=== PATIENT | female | born 1985 | race Caucasian/White ===

== ENCOUNTER 2019-11-05 22:04 | Emergency (ER) | payer MEDICAID, SELFPAY ==
[2019-11-05 22:09] VITALS: BP 108/59; PULSE 72; RESP 14; TEMP 36.8; O2SAT 96
--- NOTE | 2019-11-05 22:17 | ED.GENADUL_ITS ---
Discharge Plan Disposition Patient Disposition: HOME Condition: Good Discharge Details Chief Complaint: Orthopedic Clinical Impression: Contusion of knee Primary Care Provider: None,None ED Provider: Merry Glez Home Meds and New Rx's Prescriptions: No Action No Known Home Meds RF: 0 Discharge Instructions Instructions: Contusion in Adults (ED) Additional Instructions: Encourage rest, ice, elevation. Tylenol and/or ibuprofen as needed for discomfort. Please continue with ice while pain persists. If you have pain in the next 2 weeks please follow-up with primary care. If develop new or worsening symptoms please seek care urgently once again. Medical Decision Making Patient is a pleasant 34-year-old female presenting today with chief complaint of right knee pain. She reports a few hours prior to arrival she had turned suddenly when she hit her knee against the metal frame of her bed. Since that time she has been endorsing severe patellar discomfort. States that initially she was seeing stars and reported initially she was also nauseated. This sensation has since subsided. She has been icing the area but is not taking any OTCs to help with her discomfort. States that she has sprained his knee historically but no torn ligaments, no surgeries. Ambulating with an antalgic gait. Denies other injury the time of the incident. Patient reports she is currently menstruating. On exam, she is resting comfortably. She is a small area of ecchymosis and swelling over the patella. She is able to straight leg raise, ligamentously intact, no effusion. Full range of motion, no evidence of meniscal injury. She has a small abrasion but this seems to be very superficial with no evidence of bleeding. Plan to give Tylenol and ibuprofen to help with discomfort. FINDINGS: Bones/joints: Normal. Soft tissues: Minor prepatellar soft tissue swelling. No foreign body.. IMPRESSION: 1. No acute findings. 2. No fracture. No dislocation. No joint effusion. Discussed these findings with the patient. Advised contusion. Encourage rest, ice, elevation. Tylenol and/or ibuprofen as needed for discomfort. Patient will be fitted with an Alexsander wrap to help with swelling and discomfort. All her questions and concerns were addressed and she is agreeable this plan. She will return with any new or worsening symptoms will follow-up with primary care if not improved in 2 weeks. HPI General Mode of arrival: ambulatory . Date/Time Provider Initiated Documentation: 11/05/19 22:17 . Limitations to Documentation: no limitations . Information obtained by: patient and RN notes reviewed . History of Present Illness 34 year old F presents to the emergency department with the chief complaint of right knee pain, described as severe, with intensity rated at 8. Quality is described as sharp, and is localized to the lower extremity. Patient reports no radiation. Patient started experiencing this hour(s) and it has been constant. Immobilization improves symptom(s), Movement worsens symptoms . Patient notes no other symptoms.. Patient did receive the following treatments prior to arrival, none Related Data Home Medications Medication Instructions Recorded Confirmed Unknown [No Known Home Meds] 11/05/19 11/05/19 Allergies Allergy/AdvReac Type Severity Reaction Status Date / Time No Known Allergies Allergy Unverified 11/05/19 22:13 General Stated Complaint: Orthopedic LAKHWINDER: 4 Review of Systems Constitutional Constitutional: Reports as per HPI, Denies chills, Denies fever(s), Denies headache(s) and Denies weakness ENT Ears, Nose, Mouth, and Throat: Denies headache(s) Cardiovascular Cardiovascular: Reports as per HPI Respiratory Respiratory: Reports as per HPI and Denies cough Musculoskeletal Musculoskeletal: Reports as per HPI and Denies tingling Integumentary/Breasts Skin/Breast: Reports as per HPI, Denies rash and Denies wounds Neurologic Neurologic: Reports as per HPI, Denies headache(s), Denies tingling, Denies paresthesias and Denies weakness [facility] Medical History Anxiety Depressive disorder idiopathic scolios Migraine without intractability Social History Smoking/Tobacco Use Status: Never Alcohol Intake: current Alcohol Intake frequency: a few times a week Drug use: Daily Substance use type: marijuana Do you feel safe at home: Yes Do you feel safe in your relationship?: Yes Exam Const General: cooperative, healthy appearing, comfortable, no acute distress, well developed and well groomed Nutritional Appearance: average body habitus and well nourished Orientation: alert and awake Resp Effort & Inspection: normal respiratory effort, able to speak in complete sentences and no respiratory distress Cardio Rate: regular rate Rhythm: regular rhythm Skin General skin exam: ecchymosis Trauma: abrasion (over anterior aspect of knee, small, superficial, no bleeding) Neuro General: alert and awake Cognition: normal cognition Speech: speech normal Gait: normal gait Motor: muscle tone normal throughout Sensory Exam: no sensory deficits noted Extrem Right lower extremity: full ROM, normal capillary refill, no joint enlargement, hip/thigh Details: normal to inspection and normal ROM; no tenderness and knee Details: normal to inspection, tenderness (over area of ecchymosis and swelling on patella), swelling (no effusion) Location: of the patella, normal ROM, knee ligament exam normal Details: anterior drawer test normal, posterior drawer test normal, valgus stress test normal, varus stress test normal and Eliud?s test normal (normal); no pain with axial loading, Sarai's Test Details: negative medially and laterally, abrasion, ecchymosis and other (straight leg raise normal); normal knee ligament exam, no lacerations, no crepitus, no penetrating wound, no deformity and no unusual warmth; abnormal to inspection (ecchymosis a nd small abrasion as above), no cyanosis and no edema Psych Appearance: grossly normal and well kempt Mental Status: mental status grossly normal Speech and Movement: speech and movement normal Course Vital Signs Vital signs: Vital Signs Temperature 36.8 C 11/05/19 22:09 Pulse 72 11/05/19 22:09 Respiratory Rate 14 11/05/19 22:09 Blood Pressure 108/59 L 11/05/19 22:09 Pulse Oximetry 96 11/05/19 22:09 Temperature 36.8 C 11/05/19 22:09 Temperature Source Skin 11/05/19 22:09 Pulse 72 11/05/19 22:09 Respiratory Rate 14 11/05/19 22:09 Respiratory Effort Non-Labored 11/05/19 22:12 Blood Pressure 108/59 L 11/05/19 22:09 Blood Pressure Position Sitting 11/05/19 22:09 Pulse Oximetry 96 11/05/19 22:09 Oxygen Delivery Method Room Air 11/05/19 22:09 Oxygen Flow Rate 0 11/05/19 22:09 Pain Level 8 11/05/19 22:14
[2019-11-05] MEDS: Acetaminophen 500 MG TAB 1000 MG PO (22:55)
[2019-11-05] MEDS: Ibuprofen 600 MG TAB PO (22:55)
--- NOTE | 2019-11-05 22:56 | DI.RAD_ITS ---
EXAM: XR KNEE RT 4V AP,LAT,SHANNAN,PAT INDICATION: struck patella. COMPARISON: No exams were available for comparison TECHNIQUE: 2D digital imaging was performed. FINDINGS: Or joint effusion is seen. There is some soft tissue swelling anterior to the patella. IMPRESSION: Mild anterior soft tissue swelling.
--- NOTE | 2019-11-05 23:26 | DI.VRAD_ITS ---
PROCEDURE INFORMATION: Exam: XR Left Knee Exam date and time: 11/05/2019 10:56 PM Age: 34 years old Clinical indication: Right; Patient HX: Hit knee on metal bed frame, pain and difficulty bearing weight TECHNIQUE: Imaging protocol: XR Left knee. Views: 4 or more views. COMPARISON: No relevant prior studies available. FINDINGS: Bones/joints: Normal. Soft tissues: Minor prepatellar soft tissue swelling. No foreign body.. IMPRESSION: 1. No acute findings. 2. No fracture. No dislocation. No joint effusion. Dictated and Authenticated by: Lawrence Vasquez MD. Ordering:DARLYN Sousa MD
[2019-11-06 00:02] VITALS: BP 108/59; PULSE 72; RESP 14; TEMP 36.8; O2SAT 96
== END 2019-11-05 23:55 | disposition home or self-care (01) ==
PROVIDERS: Emergency Provider Physician Assistant
DX: S80.01XA Contusion of right knee, initial encounter (principal); W22.03XA Walked into furniture, initial encounter
CPT/HCPCS: 99283; 73564

== ENCOUNTER 2020-05-01 11:15 | Outpatient (REF) | payer MEDICAID, SELFPAY ==
--- NOTE | 2020-05-01 10:30 | PAPFT_PTH ---
PATIENT: Ana Bowser LOC: [facility] U#:[id number] AGE/SX: 34/F ROOM: RE05/01/[address]: Blanche Lema : 1985 BED: DIS: 05/01/2020 SPEC #: [id number] RECD: 05/01/20 17:34 STATUS: HALIMA REQ #: [id number] MARTHA: 05/01/20 10:[address]: Blanche Lema DEPT: [facility] Cytology RECD BY: Khushi Baca Tissues: 1 - CX/ENDOCX FOR PAP SMEARS Procedures: PAP THIN PREP/UVM Screening HPV DNA PROBE Comments: [id number] (CHLAMYDIA/GC)
[2020-05-04 15:40] LABS: Chlamydia Result Negative (Negative); GC Result Negative (Negative)
== END 2020-05-01 11:35 ==
LOC: NCHCN 11:15
PROVIDERS: PCP Family Medicine; Visit Provider Family Medicine
DX: Z11.3 Encounter for screening for infections with a predominantly sexual mode of transmission (principal); Z12.4 Encounter for screening for malignant neoplasm of cervix; Z11.51 Encounter for screening for human papillomavirus (HPV)
CPT/HCPCS: 87491; 87591; 88142; 87624

== ENCOUNTER 2020-07-24 13:28 | Outpatient (REF) | payer MEDICAID, SELFPAY | END 2020-07-24 13:48 | LOC: NCHCN 13:28 | PROVIDERS: PCP Family Medicine; Visit Provider Nurse Practitioner Family | DX: R30.0 Dysuria (principal) | CPT/HCPCS: 87077; 87086; 87186 ==

== ENCOUNTER 2021-04-14 18:03 | Emergency (ER) | payer MEDICAID, SELFPAY ==
[2021-04-14] VITALS (19 sets, daily range): BP systolic 107–137; BP diastolic 43–79; PULSE 41–57; RESP 10–22; TEMP 36.6; O2SAT 96–100
--- NOTE | 2021-04-14 18:21 | ED.GENADUL_ITS ---
Discharge Plan Disposition Patient Disposition: HOME Condition: Stable Discharge Details Clinical Impression: Abdominal pain, Constipation, Enlarged uterus Primary Care Provider: Blanche Lema ED Provider: Merry Glez Home Meds and New Rx's Prescriptions: No Action No Known Home Meds RF: 0 Discharge Instructions Instructions: Magnesium Citrate (By mouth), Constipation (ED), Abdominal Pain (ED) Additional Instructions: Your labs and imaging are reassuring for any acute abnormality at this time. You do appear to be constipated. We will be sending you home with a bottle of magnesium citrate. You may take half a bottle and see if this has good effect. If this is insufficient, may give the second half. Please encourage water intake. As we discussed, we cannot completely rule out ovarian pathology. I have referred you for an outpatient ultrasound. Please call tomorrow to schedule follow-up appointment. They will also look further at your liver at that time. If in the interim you develop fever/chills, inability stay hydrated, increased pain or other new/worsening symptoms please seek care urgently once again. Please follow up with primary care this week for reevaluation and discuss US results. Referrals: Blanche Lema MD [Primary Care Provider] - Discharge Data Discharge Date/Time-TO BE ENTERED AT DEPARTURE: 04/14/21 21:40 Medical Decision Making Patient is a pleasant 35 year old female presenting today with c/c of abdominal bloating that began last night. States that she has chronic constipation but did not have relief after enema. Surgical history pertinent for cholecystecomy. States she has some nausea, no vomiting. Reports that she had diminished appetite this evening. Pain is not worse with eating. No fevers/chills. No pain in her back. Denies vaginal discharge. LMP last week. On exam, patient appears nontoxic. She has tenderness with guarding on RLQ over McBurney's point. No CVA tenderness or pain elsewhere. Lungs are clear. Concerned at this time for appendicitis. Also considered nephrolithiasis, constipation, gastroenteritis, ovarian cyst. Less likely ovarian torsion, her history is not highly suggestive of this. Paitent improved with IV Zofran. FINDINGS: Liver: Diffuse heterogeneous enhancement (Nutmeg liver), may be the result of hepatic venous congestion. Gallbladder and bile ducts: There has been a cholecystectomy. Pancreas: Normal. No ductal dilation. Spleen: Normal. No splenomegaly. Adrenal glands: Normal. No mass. Kidneys and ureters: Normal. No hydronephrosis. Stomach and bowel: Unremarkable. No obstruction. No mucosal thickening. Appendix: No evidence of appendicitis. Intraperitoneal space: Unremarkable. No free air. No significant fluid collection. Vasculature: Unremarkable. No abdominal aortic aneurysm. Lymph nodes: Unremarkable. No enlarged lymph nodes. Urinary bladder: Unremarkable as visualized. Reproductive: Dilated left ovarian vein with associated enlarged varicosities within the left parametrial region. The uterus is diffusely enlarged. Bones/joints: Unremarkable. No acute fracture. Soft tissues: Unremarkable. IMPRESSION: 1. Hepatic venous congestion. This can be seen with but rick syndrome, congestive heart failure, pulmonary hypertension among others. 2. 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 3. Diffusely enlarged uterus may be physiologic. However raises suspicion for possible adenomyosis Discussed the findings with the patient. She continues to feel well and is not having any discomfort at this time. However, she continues to feel bloated. Patient did have a notable amount of stool burden. Question if this is all associated with constipation. We did discuss the incidental findings noted on the CT scan. She and I discussed further imaging of the right lower quadrant, in particular an ultrasound for potential ovarian torsion. No cyst was noted by radiologist. She does not have any free fluid. Her history is not consistent with ovarian torsion. She denies any sudden onset of pain, pain is been fairly well tolerated. It is more bloating. We do not currently have recreation leader on this evening. I did discuss patient transferring to a different facility for ultrasound evaluation. However, she would prefer to follow-up as an outpatient tomorrow. This would allow for further evaluation of her uterus as well as the liver. Her LFTs were normal. I did advise close follow-up with primary care this week for reevaluation. Patient does live locally and is able to return promptly with any new or worsening symptoms. Patient will be sent home with stool softener. She prefers to take this when she is in her own home. All of her questions and concerns were addressed and she is in agreement this plan. HPI General Mode of arrival: ambulatory . Date/Time Provider Initiated Documentation: 04/14/21 18:12 . Limitations to Documentation: no limitations . Information obtained by: patient and RN notes reviewed . History of Present Illness 35 year old F presents to the emergency department with the chief complaint of abdominal pain, bloating, nausea, described as moderate, with intensity rated at 3. Quality is described as aching, and is localized to the abdomen. Patient reports no radiation. Patient started experiencing this hour(s) and it has been constant. No relieving factors improve symptom(s), Eating worsens symptoms . Patient notes no other symptoms.. Patient did receive the following treatments prior to arrival, none Related Data Home Medications Medication Instructions Recorded Confirmed Unknown [No Known Home Meds] 11/17/20 04/14/21 Allergies Allergy/AdvReac Type Severity Reaction Status Date / Time vinegar Allergy Uncoded 04/14/21 18:24 General LAKHWINDER: 4 Review of Systems Constitutional Constitutional: Reports as per HPI, Denies chills, Denies fatigue, Denies fever(s) and Denies headache(s) ENT Ears, Nose, Mouth, and Throat: Denies headache(s) Cardiovascular Cardiovascular: Reports as per HPI, Denies chest pain and Denies dyspnea Respiratory Respiratory: Reports as per HPI, Denies cough and Denies dyspnea Gastrointestinal Gastrointestinal: Reports as per HPI Musculoskeletal Musculoskeletal: Reports as per HPI and Denies back pain Integumentary/Breasts Skin/Breast: Reports as per HPI and Denies rash Neurologic Neurologic: Reports as per HPI and Denies headache(s) Endocrine Endocrine: Denies fatigue [facility] Medical History (Updated 04/14/21 @ 21:33 by MARION Jimenez) Anxiety Depressive disorder idiopathic scolios Migraine without intractability Social History Smoking/Tobacco Use Status: Never Smoking risk assessment performed?: Yes Alcohol Intake: current Alcohol Intake frequency: a few times a week Drug use: Daily Substance use type: marijuana Do you feel safe at home: Yes Do you feel safe in your relationship?: Yes Exam Const General: cooperative, healthy appearing, comfortable, no acute distress and well developed Nutritional Appearance: average body habitus and well nourished Orientation: alert and awake HENMT Head: normal to inspection Mouth: moist mucous membranes Resp Effort & Inspection: normal respiratory effort, able to speak in complete sentences and no respiratory distress Auscultation: clear to auscultation bilaterally, no rales, no rhonchi and no wheezes Cardio Rate: regular rate Rhythm: regular rhythm Heart Sounds: S1 normal and S2 normal GI Inspection: normal to inspection, no edema and non-distended Palpation: soft, no hepatosplenomegaly, not firm, guarding in the RLQ, no hernias, no masses and tender in the RLQ and at McBurney's point; Pulido's sign negative, obturator sign negative and psoas sign negative Percussion: normal to percussion Auscultation: normal bowel sounds Back/Spine/Pelvis Back: no CVA tenderness Skin General skin exam: no rashes or lesions noted Trauma: no lacerations or abrasions Neuro General: patient alert and patient awake Cognition: normal cognition Speech: speech normal Gait: normal gait Psych Appearance: grossly normal and well kempt Mental Status: mental status grossly normal Speech and Movement: speech and movement normal
--- NOTE | 2021-04-14 18:30 | DI.CT_ITS ---
Exam(s) CT ABDOMEN PELVIS W EXAM: CT ABDOMEN PELVIS W CLINICAL HISTORY: RLQ pain. TECHNIQUE: Imaging Protocol: Axial computed tomography images with coronal and sagittal reformatted images were created and reviewed CONTRAST MATERIAL: Intravenous: Omnipaque 70cc Oral: None COMPARISON: CT RENAL COLIC WO CONTRAST from 05/12/2017 FINDINGS: VISUALIZED LUNG BASES: No nodules nor pleural effusions evident. ABDOMEN: There is no ascites. LIVER: Enhancement pattern of the liver is somewhat heterogeneous. Possibly related to an element of hepatic venous congestion GALLBLADDER/BILIARY: Gallbladder surgically absent. CBD is not dilated. PANCREAS: No evidence of pancreatic mass nor dilatation of the pancreatic duct. SPLEEN: Spleen is not enlarged. No obvious intrasplenic lesions. Splenic and portal veins are paten t. ADRENALS: There are no significant adrenal masses. KIDNEYS:No cysts evident. No solid renal masses. No calculi nor hydronephrosis.. ABDOMINAL AORTA: Abdominal aorta is not enlarged. LYMPH NODES:There is no retroperitineal nor paraaortic adenopathy. ABDOMINAL WALL: No evidence of significant anterior abdominal wall hernia. GI: There is no evidence of bowel obstruction, free air, nor abscess. PELVIS: GI: No evidence of appendicitis.No evidence of sigmoid diverticulitis. LYMPH NODES: There is no intrapelvic nor inguinal adenopathy. REPRODUCTIVE: The uterus is symmetrical enlarged. There are no ovarian masses. A cyst in the left o vary 11 x 9 millimeters, most probably follicular. There are numerous dilated veins in the left adne xal region. These drain into a somewhat prominent left gonadal vein which itself drains into the lef t renal vein. There is no free fluid in the pelvis. URINARY BLADDER: No calculi nor obvious masses evident OSSEOUS: No significant osseous lesions. Degenerative disc disease findings at L5-S1 level including vacuum phenomenon within the disc space. IMPRESSION: 1. Hepatic enhancement pattern is heterogeneous, most probably related to venous congestion. There a re no discrete focal hepatic lesions. 2. Gallbladder surgically absent. The biliary tree is not dilated. 3. Dilated left pelvic veins as described above, consistent with an element of pelvic congestion synd amilcar. 4. Diffusely enlarged uterus which may be physiologic versus is possible suspicion for adenomyosis. No abnormal adnexal-ovarian masses. RADIATION DOSE DELIVERED: 523.81mGy.cm Total DLP DATA REPOSITORY: All CT scans at this facility are submitted to the National Radiology Data Registry (NRDR) Dose Index Registry (DIR) with the [employer] (ACR). RADIATION OPTIMIZATION: All CT scans at this facility use at least one of these dose optimization te chniques: automated exposure control; mA and/or kV adjustment per patient size (includes targeted exa ms where dose is matched to clinical indication); or iterative reconstruction.
[2021-04-14 18:50] LABS: Abs Immature Grans 0.01 10^3/uL (0.0-0.06); Absolute Basophil Count 0.01 10^3/uL (0.0-0.2); Absolute Eosinophil Count 0.08 10^3/uL (0.0-0.7); Absolute Lymphocyte Count 2.12 10^3/uL (1.2-3.4); Absolute Monocyte Count 0.41 10^3/uL (0.1-0.8); Absolute Neutrophil Count 2.91 10^3/uL (1.2-6.7); Basophils % 0.2; Eosinophils % 1.4; HCT 35.4 % (36.0-46.0); HGB 11.5 g/dL (11.2-15.7); Immature Grans % 0.2; Lymphocytes % 38.3; MCH 28.4 pg (27.0-33.0); MCHC 32.5 % (32.0-36.0); MCV 87.4 fL (80-95); MPV 10.6 fL (8.0-11.0); Monocytes % 7.4; Neutrophils % 52.5; Nucleated RBC 0 %; Platelet Count 203 10^3/uL (130-400); RBC 4.05 10^6/uL (3.93-5.22); RDW 12.2 % (11.7-14.6); RDW-SD 39.6 fL; WBC 5.54 10^3/uL (4.4-10.8)
[2021-04-14] MEDS: Ondansetron 4 MG/2 ML VIAL IVP (19:05)
[2021-04-14] MEDS: Lactated Ringers 1,000 ML 1000 ML IV (19:05)
[2021-04-14 19:09] LABS: ALT 20 U/L (14-59); AST 12 U/L (15-37); Albumin 3.9 g/dL (3.4-5.0); Alkaline Phosphatase 55 U/L (46-116); Anion Gap 7.2 mmol/L (3-11); BUN 15 mg/dL (7-18); Bilirubin, Total 0.4 mg/dL (0.2-1.0); CO2 28.8 mmol/L (21.0-32.0); CREATININE 0.7 mg/dL (0.55-1.02); Calcium 8.4 mg/dL (8.5-10.1); Chloride 106 mmol/L (98-107); Glucose 97 mg/dL (74-106); Potassium 3.7 mmol/L (3.5-5.1); Sodium 142 mmol/L (136-145); Total Protein 6.8 g/dL (6.4-8.2)
[2021-04-14] MEDS: Omnipaque 350 MG/ML 100 ML BTL IJ (20:08)
[2021-04-14] MEDS: Normal Saline Flush 10 ML SYR IVP (20:09)
[2021-04-14] MEDS: Normal Saline - Diluent 50 ML VIAL IV (20:09)
[2021-04-14] MEDS: ACETAMINOPHEN 1,000 MG/100 ML BTL 400 MG IVPB (20:29)
--- NOTE | 2021-04-14 20:39 | DI.VRAD_ITS ---
PROCEDURE INFORMATION: Exam: CT Abdomen And Pelvis With Contrast Exam date and time: 04/14/2021 6:34 PM Age: 35 years old Clinical indication: Other: Rlq pain TECHNIQUE: Imaging protocol: Computed tomography of the abdomen and pelvis with contrast. Radiation optimization: All CT scans at this facility use at least one of these dose optimization techniques: automated exposure control; mA and/or kV adjustment per patient size (includes targeted exams where dose is matched to clinical indication); or iterative reconstruction. Contrast material: OMNIPAQUE 350; Contrast volume: 70 ml; Contrast route: INTRAVENOUS (IV); COMPARISON: CT RENAL COLIC WO CONTRAST 05/12/2017 9:05 AM FINDINGS: Liver: Diffuse heterogeneous enhancement (Nutmeg liver), may be the result of hepatic venous congestion. Gallbladder and bile ducts: There has been a cholecystectomy. Pancreas: Normal. No ductal dilation. Spleen: Normal. No splenomegaly. Adrenal glands: Normal. No mass. Kidneys and ureters: Normal. No hydronephrosis. Stomach and bowel: Unremarkable. No obstruction. No mucosal thickening. Appendix: No evidence of appendicitis. Intraperitoneal space: Unremarkable. No free air. No significant fluid collection. Vasculature: Unremarkable. No abdominal aortic aneurysm. Lymph nodes: Unremarkable. No enlarged lymph nodes. Urinary bladder: Unremarkable as visualized. Reproductive: Dilated left ovarian vein with associated enlarged varicosities within the left parametrial region. The uterus is diffusely enlarged. Bones/joints: Unremarkable. No acute fracture. Soft tissues: Unremarkable. IMPRESSION: 1. Hepatic venous congestion. This can be seen with but rick syndrome, congestive heart failure, pulmonary hypertension among others. 2. 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 3. Diffusely enlarged uterus may be physiologic. However raises suspicion for possible adenomyosis. Dictated and Authenticated by: Dominick Gentile MD. Ordering:DARLYN oSusa MD
[2021-04-14] MEDS: Magnesium Citrate 300 ML BTL PO (21:35)
--- NOTE | 2021-04-14 21:48 | NUR.NOTE ---
Radiology req faxed to [facility] for ultra sound appt. 04/15/21 RLQ pain, abnormal liver findings on CT.Nursing Note:
== END 2021-04-14 21:40 | disposition home or self-care (01) ==
PROVIDERS: Emergency Provider Physician Assistant; PCP Family Medicine
DX: K59.00 Constipation, unspecified (principal); R10.9 Unspecified abdominal pain; N85.2 Hypertrophy of uterus
CPT/HCPCS: 80053; 81025; 96361; 96372; 96374; 96375; 99285; 74177; 85025; 99284; J0131; J2405; J3490

== ENCOUNTER 2021-04-16 04:51 | Outpatient (CLI) | payer MEDICAID, SELFPAY ==
--- NOTE | 2021-04-16 | DI.US_ITS ---
Exam(s) US ABD PELV TRANSVAG NON-OB EXAM: US ABD PELV TRANSVAG NON-OB CLINICAL HISTORY: ENLARGED UTERUS,BLOATING,RLQ PAIN,RUQ PAIN,ABNL LIVER ON CT TECHNIQUE: Ultrasound of the abdomen, pelvic, both abdmonal and tranvaginal was performed using sta ndard protocol. COMPARISON: US ABDOMEN ULTRASOUND (P) from 03/10/2014 US ABDOMEN ULTRASOUND (P) from 03/10/2014 CT RENAL COLIC WO CONTRAST from 05/12/2017 CT RENAL COLIC WO CONTRAST from 05/12/[address] ABDOMEN PELVIS W from 04/14/2021 FINDINGS: LIVER: Normal size and echogenicity. No focal lesions.. Normal hepatopetal portal venous flow. GALLBLADDER: Status post cholecystectomy. KIDNEYS: Kidneys are symmetric in size. No evidence of renal calculi. No evidence of hydronephrosis. No renal mass or cyst identified. BILIARY SYSTEM: Common bile duct measures 3 millimeters. No intrahepatic biliary ductal dilation. WYATT'S SIGN: Negative. PANCREAS: Normal where visualized. SPLEEN: Not enlarged. ABDOMINAL AORTA AND IVC: Visualized portions normal caliber. ASCITES: None seen. UTERUS: Position: Anteverted. Size: 8.4 x 4.3 x 5.7 cm Endometrium: 0.6 cm. Homogeneous. Normal for patient's menstrual status. Myometrium: Unremarkable. Homogeneous. Cervix: Unremarkable. OVARIES: Right: 2.7 x 1.4 x 1.4 cm Cyst or mass: None. Left: 3.4 x 2 x 1.6 cm Cyst or mass: 1.3 centimeter dominant follicle. DOPPLER: Color: Symmetric and uniform flow to both ovaries. No hyperemia. Duplex: Normal ovarian arterial waveforms visualized. CUL-DE-SAC: Free fluid: None. Bladder: Unremarkable. IMPRESSION: 1. Normal sonographic appearance of the upper abdomen. 2. Normal-appearing uterus with endometrial stripe within normal limits. 3. Unremarkable bilateral ovaries. DATA REPOSITORY:
== END 2021-04-16 05:11 ==
PROVIDERS: PCP Family Medicine; Visit Provider Physician Assistant
DX: N85.2 Hypertrophy of uterus (principal); R93.2 Abnormal findings on diagnostic imaging of liver and biliary tract; R10.11 Right upper quadrant pain
CPT/HCPCS: 76700; 76830; 76856

== ENCOUNTER 2021-06-02 14:40 | Outpatient (REF) | payer MEDICAID, SELFPAY ==
[2021-06-02 20:38] LABS: HCT 35.6 % (36.0-46.0); HGB 11.4 g/dL (11.2-15.7); MCH 28.1 pg (27.0-33.0); MCV 87.9 fL (80-95); MPV 11.8 fL (8.0-11.0); Platelet Count 197 10^3/uL (130-400); RBC 4.05 10^6/uL (3.93-5.22); RDW 12.2 % (11.7-14.6); RDW-SD 39.6 fL; WBC 6.05 10^3/uL (4.4-10.8)
[2021-06-02 20:58] LABS: Ferritin 44 ng/mL (8-252); TSH (W/Ref FT4) 1.08 uIU/mL (0.36-3.74)
== END 2021-06-02 14:41 | disposition home or self-care (01) ==
LOC: NCHCN 14:40
PROVIDERS: PCP Family Medicine; Referring Provider Family Medicine; Visit Provider Family Medicine
DX: N92.0 Excessive and frequent menstruation with regular cycle (principal)
CPT/HCPCS: 85027; 82728; 84443

== ENCOUNTER 2021-07-05 14:13 | Emergency (ER) | payer MEDICAID, SELFPAY ==
[2021-07-05] VITALS (32 sets, daily range): BP systolic 105–149; BP diastolic 55–91; PULSE 45–99; RESP 9–20; TEMP 37.5; O2SAT 96–100
--- NOTE | 2021-07-05 14:45 | RT.EKG_ITS ---
APPROVED REPORT Exam: Resting ECG Reason for Exam: chest pain Patient Location: E HR:47 bpm ECG Measurements Heart Rate 47 AXIS RI 178 P 35 QRSd 72 QRS 81 QT 449 T 44 QTc 397 Conclusion Sinus bradycardia...rate< 60 no STEMI, non-diagnostic EKG I have reviewed and interpreted ECG and agree with software generated interpretation.
[2021-07-05 15:17] LABS: Abs Immature Grans 0.02 10^3/uL (0.0-0.06); Absolute Basophil Count 0.02 10^3/uL (0.0-0.2); Absolute Eosinophil Count 0.03 10^3/uL (0.0-0.7); Absolute Lymphocyte Count 1.75 10^3/uL (1.2-3.4); Absolute Monocyte Count 0.35 10^3/uL (0.1-0.8); Absolute Neutrophil Count 2.78 10^3/uL (1.2-6.7); Basophils % 0.4; Eosinophils % 0.6; HCT 37.3 % (36.0-46.0); HGB 11.9 g/dL (11.2-15.7); Immature Grans % 0.4; Lymphocytes % 35.4; MCH 28.1 pg (27.0-33.0); MCHC 31.9 % (32.0-36.0); MCV 88.2 fL (80-95); MPV 10.8 fL (8.0-11.0); Monocytes % 7.1; Neutrophils % 56.1; Nucleated RBC 0 %; Platelet Count 229 10^3/uL (130-400); RBC 4.23 10^6/uL (3.93-5.22); RDW 12.5 % (11.7-14.6); RDW-SD 40.1 fL; WBC 4.95 10^3/uL (4.4-10.8)
--- NOTE | 2021-07-05 15:34 | ED.GENADUL_ITS ---
Discharge Plan Disposition Patient Disposition: HOME Condition: Improving Discharge Details Clinical Impression: Migraine, Facial paresthesia Primary Care Provider: Blanche Lema ED Provider: Merry Glez Home Meds and New Rx's Prescriptions: New promethazine 25 mg tablet 25 mg PO Q6H PRN (Reason: nausea and vomiting) Qty: 14 RF: 0 Discharge Instructions Instructions: Promethazine (By mouth), General Headache (ED) Additional Instructions: Your imaging is reassuring here today. Your labs are also without significant abnormality. As we discussed, I am concerned that this is one of her typical migraines but may be slightly worse secondary to your increased stress. Please encourage hydration. You may use Tylenol and/or ibuprofen as needed for discomfort. Please take the promethazine as prescribed for any recurrent nausea or vomiting. As discussed, it sounds that this is worked well for her migraines historically hopefully will help once again. I would like you to follow-up with your primary care provider this week for reevaluation, please call tomorrow to schedule follow-up appointment. Develop any fever/chills, increased pain, inability stay hydrated or other new/worsening symptom please seek care urgently once again Referrals: Blanche Lema MD [Primary Care Provider] - Discharge Data Discharge Date/Time-TO BE ENTERED AT DEPARTURE: 07/05/21 18:40 Medical Decision Making <MARION Arias - Last Filed: 07/06/21 21:23> Patient appears well but have a negative carotid bruit on the right side, her diagnostic labs not show significant acute abnormality CTA head neck ordered, she had developed headache approximately 1600 for which I ordered Tylenol, initially Compazine and Benadryl, however if all that testing is negative, patient will likely be discharged home She has a bradycardic but asymptomatic with this, and this is reportedly baseline for patient Denies any suicidal or homicidal ideation, feels like she has a good support from her home and declines additional intervention at this time Signed out to Merry Glez pending cta head and neck and reassessment <MARION Jimenez - Last Filed: 07/05/21 22:12> Care transition myself from Khushi Germain PA-C. Please see her initial note regarding history, presentation. In brief, patient is a pleasant 35-year-old female presenting today with chief complaint of right-sided facial numbness. At the time I assumed care, CTA it was pending. Just prior to Mrs. Germain transition of care, patient began endorsing a migraine. It sounds a patient has had these similar facial neuralgias associated with migraines historically but she has not had one in quite some time. She has had a large amount of social stress recently. Ms. Germain was concerned that there is a bruit noted on the right side of her neck therefore wanted to obtain the CTA. She did write for Tylenol for the patient. Shortly after I assumed care, patient became nauseated. She does report planning to drive home. Will give IV Zofran. We will also hydrate the patient grossly also be playing into her headache. FINDINGS: ANTERIOR CIRCULATION: Right internal carotid artery: Unremarkable. Intracranial segment is patent with no significant stenosis. No aneurysm. Right middle cerebral artery: Unremarkable. No occlusion or significant stenosis. No aneurysm. Right anterior cerebral artery: Unremarkable. No occlusion or significant stenosis. No aneurysm. Left internal carotid artery: Unremarkable. Intracranial segment is patent with no significant stenosis. No aneurysm. Left middle cerebral artery: Unremarkable. No occlusion or significant stenosis. No aneurysm. Left anterior cerebral artery: Unremarkable. No occlusion or significant stenosis. No aneurysm. POSTERIOR CIRCULATION: Right vertebral artery: Unremarkable. No occlusion or significant stenosis. No aneurysm. Left vertebral artery: Unremarkable. No occlusion or significant stenosis. No aneurysm. Basilar artery: Unremarkable. No occlusion or significant stenosis. No aneurysm. Right posterior cerebral artery: Unremarkable. No occlusion or significant stenosis. No aneurysm. Left posterior cerebral artery: Unremarkable. No occlusion or significant stenosis. No aneurysm. Brain: No definite mass, mass effect, or midline shift. Cerebral ventricles: No ventriculomegaly. Bones/joints: Unremarkable. No acute fracture. Soft tissues: Unremarkable. IMPRESSION: No large vessel stenosis or occlusion. FINDINGS: Right common carotid artery: No stenosis. No dissection or occlusion. Right internal carotid artery: No stenosis of the extracranial segment. No dissection or occlusion. Right external carotid artery: No occlusion or stenosis of the origin. Left common carotid artery: No stenosis. No dissection or occlusion. Left internal carotid artery: No stenosis of the extracranial segment. No dissection or occlusion. Left external carotid artery: No occlusion or stenosis of the origin. Right vertebral artery: No stenosis. No dissection or occlusion. Left vertebral artery: No stenosis. No dissection or occlusion. Soft tissues: Normal. No significant soft tissue swelling. Bones/joints: No acute fracture. IMPRESSION: No stenosis or occlusion Discussed these findings with the patient. Her headache and symptoms are improving. She is very relieved that imaging is reassuring. She reports that this did seem quite similar to when she had her migraines in the past is more severe. This is likely associated with her severe stress associated with recent level 1 denies. This is likely been heightened more than it was a CVA that the individual from. She reports that she has had Phenergan in the past for nausea, vomiting as well as migraines and has done quite well with this. We did discuss oral versus rectal Phenergan, she would prefer oral as this is worked well for her. Headache is much improved, will augment with Toradol as well prior to discharge home. Strict return precautions were discussed. Advise close follow-up with primary care. All of her questions and concerns were addressed and she is in agreement with plan. HPI <MARION Arias - Last Filed: 07/06/21 21:23> General Mode of arrival: ambulatory . Date/Time Provider Initiated Documentation: 07/05/21 14:31 . Limitations to Documentation: no limitations . Information obtained by: patient . HPI Narrative: This 35-year-old female presents with report of acute onset of right-sided facial numbness, specifically in the maxillary region and unilateral periorally with tongue involvement and palm involvement. She states that began after a sharp pain in the maxillary region. She states this lasted several seconds and resolved completely. Since that time she had persistent diminished sensation to this area. She states she is able to swallow although it feels numb on the back of her throat and she states this is exacerbating her symptoms. She states she has been all sensation in her neck . She states she has a history of anxiety and panic attacks and her partner recently after a stroke 2 weeks prior to her presentation today. She states she had numerous panic attacks and over the course of the weekend at celebration of life, she had pain in her right neck and left neck region. She states this resolved after the panic attack. She also states she has a remote history of migraines and with migraine headaches in the past she has had some paresthesias to the right maxillary region. She states that typically they do not persist and that she does not have a associated headache, vision change, speech, additional sensation change, weakness. She denies any dizziness. She denies any oral contraceptives. She smokes marijuana but no factor. She denies illicit drug use. She had a normal period which ended several days ago reportedly. She denies any known exacerbating or relieving factors. She denies chest pain or shortness of breath. She is not aware of her maternal history. Her father has history of hypertension and hyperlipidemia reportedly Related Data Home Medications Medication Instructions Recorded Confirmed promethazine 25 mg PO Q6H PRN #14 tab 07/05/21 Previous Rx's Medication Instructions Recorded promethazine 25 mg PO Q6H PRN #14 tab 07/05/21 Allergies Allergy/AdvReac Type Severity Reaction Status Date / Time vinegar Allergy Uncoded 07/05/21 14:25 General Stated Complaint: GenMedical LAKHWINDER: 3 Review of Systems <MARION Arias - Last Filed: 07/06/21 21:23> All systems reviewed & are unremarkable except as noted in HPI and below PFSH <MARION Arias - Last Filed: 07/06/21 21:23> Medical History (Updated 07/05/21 @ 18:08 by MARION Jimenez) Anxiety Depressive disorder idiopathic scolios Migraine without intractability Social History Smoking/Tobacco Use Status: Never Smoking risk assessment performed?: Yes Alcohol Intake: current Alcohol Intake frequency: a few times a week Drug use: Daily Substance use type: marijuana Do you feel safe at home: Yes Do you feel safe in your relationship?: Yes Exam <MARION Arias - Last Filed: 07/06/21 21:23> Const General: cooperative and no acute distress HENAL Head: normal to inspection Face images: 1. Diminished sensation Throat image: 1. Diminished sensation, no palpable intraoral tenderness, uvula midline Eyes Pupils: PERRL EOM: EOM intact bilaterally Neck Other: Right carotid bruit Chest Chest: normal inspection of the chest Resp Effort & Inspection: normal respiratory effort Auscultation: clear to auscultation bilaterally Cardio Rate: regular rate Rhythm: regular rhythm Neuro General: patient alert and patient oriented x3 Cranial Nerves: CN's II-XI intact bilaterally Cognition: normal cognition Speech: speech normal Gait: normal gait Other: Strength and sensation intact distally to all 4 extremities, distal pulses intact Psych Appearance: grossly normal and well kempt Course <MARION Arias - Last Filed: 07/06/21 21:23> Vital Signs Vital signs: Vital Signs Temperature 37.5 C 07/05/21 14:18 Pulse 85 07/05/21 14:18 Respiratory Rate 16 07/05/21 14:18 Blood Pressure 124/75 07/05/21 14:18 Pulse Oximetry 100 07/05/21 14:18 Temperature 37.5 C 07/05/21 14:18 Temperature Source Temporal Artery Scan 07/05/21 14:18 Pulse 48 L 07/05/21 15:03 Pulse 53 L 07/05/21 15:10 Respiratory Rate 13 07/05/21 15:10 Respiratory Effort 07/05/21 14:38 Respiratory Depth Normal 07/05/21 14:38 Respiratory Pattern Normal 07/05/21 14:38 Blood Pressure 121/60 07/05/21 15:03 Blood Pressure Mean 74 07/05/21 15:03 Pulse Oximetry 98 07/05/21 15:10 Oxygen Delivery Method Room Air 07/05/21 14:18 Oxygen Flow Rate 0 07/05/21 14:18 Pain Level 2 07/05/21 14:18 Lab/Test Results Lab/Test Results: Laboratory Tests Range/Units 07/05/21 15:04 WBC (4.4-10.8) 10^3/uL 4.95 RBC (3.93-5.22) 10^6/uL 4.23 Hgb (11.2-15.7) g/dL 11.9 Hct (36.0-46.0) % 37.3 MCV (80-95) fL 88.2 MCH (27.0-33.0) pg 28.1 MCHC (32.0-36.0) % 31.9 L RDW (11.7-14.6) % 12.5 Plt Count (130-400) 10^3/uL 229 MPV (8.0-11.0) fL 10.8 Immature Gran % 0.4 Neutrophils % 56.1 Lymphocytes % 35.4 Monocytes % 7.1 Eosinophils % 0.6 Basophils % 0.4 Nucleated RBC % % 0 Absolute Neutrophils (1.2-6.7) 10^3/uL 2.78 Absolute Lymphocytes (1.2-3.4) 10^3/uL 1.75 Absolute Monocytes (0.1-0.8) 10^3/uL 0.35 Absolute Eosinophils (0.0-0.7) 10^3/uL 0.03 Absolute Basophils (0.0-0.2) 10^3/uL 0.02 POC- Test(urine) Negative Sign Out <MARION Arias - Last Filed: 07/06/21 21:23> Sign Out Data: Sign Out Comment: pending cta head and neck, reassessment, labs Last updated by Khushi Germain PA at 07/05/21 16:00
[2021-07-05 15:35] LABS: ALT 17 U/L (14-59); AST 12 U/L (15-37); Albumin 4.3 g/dL (3.4-5.0); Alkaline Phosphatase 55 U/L (46-116); Anion Gap 7.6 mmol/L (3-11); BUN 8 mg/dL (7-18); Bilirubin, Total 0.6 mg/dL (0.2-1.0); CO2 29.4 mmol/L (21.0-32.0); CREATININE 0.7 mg/dL (0.55-1.02); Calcium 8.6 mg/dL (8.5-10.1); Chloride 106 mmol/L (98-107); Glucose 98 mg/dL (74-106); Potassium 3.8 mmol/L (3.5-5.1); Sodium 143 mmol/L (136-145); Total Protein 7.4 g/dL (6.4-8.2)
[2021-07-05 15:37] LABS: Troponin I < 0.05 ng/mL (<0.06)
[2021-07-05] MEDS: ACETAMINOPHEN 1,000 MG/100 ML BTL 400 MG IVPB (16:10)
--- NOTE | 2021-07-05 16:15 | DI.CT_ITS ---
Exam(s) CT BRAIN NECK CTA EXAM: CT BRAIN NECK CTA CLINICAL HISTORY: right bruit, right facial numbness. TECHNIQUE: Imaging Protocol: Axial CT angiography was performed with multi-slice acquisition and mu lti-planar and/or 3D reconstructions. CONTRAST MATERIAL: Intravenous: Omnipaque 350 Contrast volume:85 cc COMPARISON: CR THORACIC SPINE from 08/14/[address] ABDOMEN PELVIS W from 04/14/2021 FINDINGS: CTA Neck W: Aortic arch anatomy: The aortic arch anatomy is conventional. Anterior circulation: Both common carotid arteries ascend with normal luminal diameter. There is no significant stenosis a t either carotid bifurcation nor in the proximal aspects of both internal carotid arteries in the nec k. Both internal carotid arteries are also demonstrated to be nicely patent in the upper neck as wel l as in the skull base-carotid canals appear Posterior circulation: Both vertebral arteries originate in conventional fashion off of the subclavian arteries and without significant stenosis at their origins. Both vertebral arteries are demonstrated to be patent within the foramen transversarium. Right vertebral artery is dominant. The skull base there is some venous contamination but both vertebral arteries appear to contribute to the formation of the basilar artery CTA Brain W: Anterior circulation: Both internal carotid arteries are patent in the skull base-carotid canals as well as within both cav ernous sinuses. Supraclinoid aspects of the internal carotid arteries are patent and nonaneurysmal. Both A1 segments are patent as are the anterior cerebral arteries. There is no evidence of obvious aneurysm at the l evel of the anterior communicating artery. Both middle cerebral arteries appear patent Posterior circulation: Basilar artery ascends in the midline. Distally gives off superior cerebellar arteries and terminate s as a right posterior cerebral artery. The left posterior cerebral artery is predominantly supplied by posterior communicating artery on the left side of the [id number]. There is no evidence of aneurysm of the tip of the basilar artery nor elsewhere in the [id number]. CT BRAIN: There is no evidence of intracranial hemorrhage, mass effect, or shift of midline structures. There are no extra-axial fluid collections. Ventricles are not enlarged or shifted. There are no ring enh ancing lesions in the brain and no abnormal meningeal enhancement. IMPRESSION: 1. Patent arteries in the neck 2. Patent intracranial arteries. 3. No evidence of intracranial hemorrhage. No ring enhancing lesions in the brain RADIATION DOSE DELIVERED: 1,760.87mGy.cm Total DLP DATA REPOSITORY: All CT scans at this facility are submitted to the National Radiology Data Registry (NRDR) Dose Index Registry (DIR) with the [employer] (ACR). RADIATION OPTIMIZATION: All CT scans at this facility use at least one of these dose optimization te chniques: automated exposure control; mA and/or kV adjustment per patient size (includes targeted exa ms where dose is matched to clinical indication); or iterative reconstruction.
[2021-07-05] MEDS: Normal Saline - Diluent 50 ML VIAL IV (16:45)
[2021-07-05] MEDS: Omnipaque 350 MG/ML 100 ML BTL IJ (16:45)
[2021-07-05] MEDS: Normal Saline 1,000 ML 1000 ML IV (17:30)
[2021-07-05] MEDS: Ondansetron 4 MG/2 ML VIAL IVP (17:44)
--- NOTE | 2021-07-05 17:49 | DI.VRAD_ITS ---
PROCEDURE INFORMATION: Exam: CT Angiography Head With Contrast, Arteriography Exam date and time: 07/05/2021 4:23 PM Age: 35 years old Clinical indication: Patient HX: Right bruit, right facial numbness TECHNIQUE: Imaging protocol: Computed tomography angiography of the head with contrast. Exam focused on the arteries. 3D rendering (Not supervised by radiologist): MIP and/or 3D reconstructed images were created by the technologist. COMPARISON: No relevant prior studies available. FINDINGS: ANTERIOR CIRCULATION: Right internal carotid artery: Unremarkable. Intracranial segment is patent with no significant stenosis. No aneurysm. Right middle cerebral artery: Unremarkable. No occlusion or significant stenosis. No aneurysm. Right anterior cerebral artery: Unremarkable. No occlusion or significant stenosis. No aneurysm. Left internal carotid artery: Unremarkable. Intracranial segment is patent with no significant stenosis. No aneurysm. Left middle cerebral artery: Unremarkable. No occlusion or significant stenosis. No aneurysm. Left anterior cerebral artery: Unremarkable. No occlusion or significant stenosis. No aneurysm. POSTERIOR CIRCULATION: Right vertebral artery: Unremarkable. No occlusion or significant stenosis. No aneurysm. Left vertebral artery: Unremarkable. No occlusion or significant stenosis. No aneurysm. Basilar artery: Unremarkable. No occlusion or significant stenosis. No aneurysm. Right posterior cerebral artery: Unremarkable. No occlusion or significant stenosis. No aneurysm. Left posterior cerebral artery: Unremarkable. No occlusion or significant stenosis. No aneurysm. Brain: No definite mass, mass effect, or midline shift. Cerebral ventricles: No ventriculomegaly. Bones/joints: Unremarkable. No acute fracture. Soft tissues: Unremarkable. IMPRESSION: No large vessel stenosis or occlusion. PROCEDURE INFORMATION: Exam: CT Angiography Neck With Contrast Exam date and time: 07/05/2021 4:23 PM Age: 35 years old Clinical indication: Patient HX: Right bruit, right facial numbness TECHNIQUE: Imaging protocol: Computed tomography angiography of the neck with contrast. 3D rendering (Not supervised by radiologist): MIP and/or 3D reconstructed images were created by the technologist. COMPARISON: No relevant prior studies available. FINDINGS: Right common carotid artery: No stenosis. No dissection or occlusion. Right internal carotid artery: No stenosis of the extracranial segment. No dissection or occlusion. Right external carotid artery: No occlusion or stenosis of the origin. Left common carotid artery: No stenosis. No dissection or occlusion. Left internal carotid artery: No stenosis of the extracranial segment. No dissection or occlusion. Left external carotid artery: No occlusion or stenosis of the origin. Right vertebral artery: No stenosis. No dissection or occlusion. Left vertebral artery: No stenosis. No dissection or occlusion. Soft tissues: Normal. No significant soft tissue swelling. Bones/joints: No acute fracture. IMPRESSION: No stenosis or occlusion. REFERENCES: NASCET CRITERIA. The degree of internal carotid artery stenosis is based on NASCET criteria. Normal is no stenosis. Mild is less than 50% stenosis. Moderate is 50-69% stenosis. Severe is 70% to 99% stenosis. Total occlusion is no detectable patent lumen. Dictated and Authenticated by: Omar Lehman MD. Ordering:DARLYN Sousa MD
[2021-07-05] MEDS: Ketorolac 15 MG/ML VIAL IVP (18:10)
== END 2021-07-05 18:40 | disposition home or self-care (01) ==
PROVIDERS: Physician Assistant; Emergency Provider Physician Assistant; PCP Family Medicine
DX: G43.909 Migraine, unspecified, not intractable, without status migrainosus (principal); R20.0 Anesthesia of skin
CPT/HCPCS: 36415; 70496; 70498; 80053; 81025; 93005; 96361; 96374; 96375; 99285; 84484; 85025; 93010; 99284; J0131; J1885; J2405; J3490

== ENCOUNTER 2021-09-03 15:07 | Outpatient (REF) | payer MEDICAID, SELFPAY ==
[2021-09-06 10:36] LABS: Hepatitis C Ab w Rflx HCV PCR Negative (Negative)
[2021-09-06 10:54] LABS: HIV-1/2 Ag & Ab Screen Negative (Negative)
== END 2021-09-03 15:08 | disposition home or self-care (01) ==
LOC: NCHCN 15:07
PROVIDERS: PCP Family Medicine; Visit Provider Family Medicine
DX: Z11.4 Encounter for screening for human immunodeficiency virus [HIV] (principal); Z11.59 Encounter for screening for other viral diseases
CPT/HCPCS: 86803; 87389

== ENCOUNTER → 2022-03-02 02:13 | Outpatient (CLI) | payer MEDICAID, SELFPAY ==
--- NOTE | 2022-03-02 | DI.US_ITS ---
Exam(s) US SOFT TISS ABD WALL/LOW BACK EXAM: US SOFT TISS ABD WALL/LOW BACK CLINICAL HISTORY: MASS IN RT TRAPEZIUS, ? LIPOMA, BACK PAIN THORACIC REGION, M54.6. TECHNIQUE: Ultrasound was performed using standard protocol. COMPARISON: None FINDINGS: Dedicated ultrasound examination was performed of the area of apparent clinical concern on the brazer helper induction ior right side of the back. Submitted images reveal no evidence of solid or significant cystic lesions. No fluid collections. N o obvious discernible lipoma. IMPRESSION: Negative study. If clinically indicated further study with CT or MRI can be performed DATA REPOSITORY:
== END ==
PROVIDERS: PCP Family Medicine; Visit Provider Family Medicine
DX: M54.6 Pain in thoracic spine (principal); R22.31 Localized swelling, mass and lump, right upper limb
CPT/HCPCS: 76705

== ENCOUNTER 2022-11-10 00:29 | Outpatient (CLI) | payer MEDICAID, SELFPAY ==
--- NOTE | 2022-11-10 08:00 | DI.US_ITS ---
Exam(s) US OB 1ST TRIMESTER EXAM: US OB 1ST TRIMESTER CLINICAL HISTORY: first trimester bleeding,O20.0,threatened ab. TECHNIQUE: First trimester obstetrical ultrasound was performed. COMPARISON: None FINDINGS: There is an intrauterine gestational sac which contains a yolk sac and viable pole which exhibi ts heart rate of 163 bpm. Yolk sac diameter is 3.8 millimeters [place]-rump length measurement is 15.3 mm, corresponding to 8 gestational age. There is subchorionic hemorrhage evident. In the fundus this measures approximately 10 x 6 x 15 mill imeters. There is also another area of subchorionic hemorrhage inferior to the gestational sac measu ring 19 x 5 x 24 millimeters Maternal ovaries: Both appear unremarkable. There is no fluid in the cul-de-sac and adnexal regions. IMPRESSION:: Single viable intrauterine gestation which is approximately 8 weeks gestational age by crown rump length measurement. heart rate measured at 163 BPM There are 2 areas of subchorionic hemorrhage measurements as above. No abnormal adnexal masses. There is no free fluid evident in the cul-de-sac. DATA REPOSITORY:
== END 2022-11-10 00:49 ==
LOC: DI 00:30
PROVIDERS: PCP Family Medicine; Visit Provider Advanced Practice Midwife
DX: O20.0 Threatened abortion (principal)
CPT/HCPCS: 76801

== ENCOUNTER 2022-12-13 14:55 | Outpatient (REF) | payer MEDICAID, SELFPAY ==
--- NOTE | 2022-12-13 15:00 | PAPFT_PTH ---
PATIENT: Ana Bowser LOC: [facility] U#:[id number] AGE/SX: 37/F ROOM: RE12/13/[address]: Liss Cuello : 1985 BED: DIS: 12/13/2022 SPEC #: [id number] RECD: 12/13/22 17:51 STATUS: HALIMA REQ #: [id number] MARTHA: 12/13/22 15:[address]: Liss Cuello DEPT: [facility] Cytology RECD BY: Khushi Baca ENTERED: 12/13/22 17:52 SP TYPE: PAPFT ROSIEHR DR: Blanche Lema Tissues: 1 - CX/ENDOCX FOR PAP SMEARS Procedures: PAP THIN PREP/U[facility] Screening HPV DNA PROBE Comments: [id number] (HPV 16 & 18/45)
[2022-12-13 18:45] LABS: *AMPHETAMINES SCREEN URINE Negative (Negative); *BARBITURATES SCREEN URINE Negative (Negative); *BENZODIAZEPINES SCREEN URINE Negative (Negative); Cannabinoids THC Positive (Negative); Cocaine Screen,Urine Negative (Negative); METHADONE URINE SCREEN Negative (Negative); OPIATES URINE SCREEN Negative (Negative)
[2022-12-13 18:47] LABS: Tricyclic Antidepressants Negative (Negative)
[2022-12-15 13:40] LABS: Chlamydia Result Negative (Negative); GC Result Negative (Negative)
[2022-12-26 08:04] LABS: Buprenorphine Negative ng/mL (Cutoff: 5.0); Norbuprenorphine Negative ng/mL (Cutoff: 2.5)
== END 2022-12-13 14:56 | disposition home or self-care (01) ==
LOC: LBN 14:55
PROVIDERS: PCP Family Medicine; Visit Provider Advanced Practice Midwife
DX: Z34.91 Encounter for supervision of normal pregnancy, unspecified, first trimester (principal); Z3A.12 12 weeks gestation of pregnancy; Z12.4 Encounter for screening for malignant neoplasm of cervix; Z11.3 Encounter for screening for infections with a predominantly sexual mode of transmission; R87.612 Low grade squamous intraepithelial lesion on cytologic smear of cervix (LGSIL); Z11.51 Encounter for screening for human papillomavirus (HPV); R87.810 Cervical high risk human papillomavirus (HPV) DNA test positive
CPT/HCPCS: 80307; 80348; 87491; 87591; 88142; 87086; 87624

== ENCOUNTER 2022-12-13 18:17 | Outpatient (CLI) | payer MEDICAID, SELFPAY ==
[2022-12-13 15:04] LABS: Panorama Kit Sent via Fed Ex
[2022-12-13 15:17] LABS: Abs Immature Grans 0.02 10^3/uL (0.0-0.06); Absolute Basophil Count 0.03 10^3/uL (0.0-0.2); Absolute Eosinophil Count 0.04 10^3/uL (0.0-0.7); Absolute Monocyte Count 0.39 10^3/uL (0.1-0.8); Absolute Neutrophil Count 4.22 10^3/uL (1.2-6.7); Basophils % 0.5; Eosinophils % 0.6; HCT 31.5 % (36.0-46.0); HGB 10.7 g/dL (11.2-15.7); Immature Grans % 0.3; Lymphocytes % 26.6; MCH 28.7 pg (27.0-33.0); MCV 85 fL (80-95); MPV 10.5 fL (8.0-11.0); Monocytes % 6.1; Neutrophils % 65.9; Platelet Count 232 10^3/uL (130-400); RBC 3.73 10^6/uL (3.93-5.22); RDW 12.8 % (11.7-14.6); RDW-SD 38.9 fL
[2022-12-15 09:25] LABS: HIV-1/2 Ag & Ab Screen Negative (Negative)
[2022-12-15 09:34] LABS: Hepatitis B Surface Ag Negative (Negative)
[2022-12-15 09:48] LABS: Hepatitis C Ab w Rflx HCV PCR Negative (Negative)
[2022-12-15 12:39] LABS: Varicella IgG Antibody Positive (See Note)
[2022-12-15 13:06] LABS: Rubella IgG Ab (UVM) Positive (See Note)
[2022-12-15 23:23] LABS: Syphilis IgG w/Reflex Nonreactive (Nonreactive)
[2022-12-26 08:29] LABS: Result Summary NEGATIVE; Specimen WB Whole Blood
== END 2022-12-13 18:18 | disposition home or self-care (01) ==
LOC: LBO 18:17
PROVIDERS: Advanced Practice Midwife; PCP Family Medicine; Visit Provider Advanced Practice Midwife
DX: Z34.91 Encounter for supervision of normal pregnancy, unspecified, first trimester (principal); Z3A.12 12 weeks gestation of pregnancy; Z36.89 Encounter for other specified antenatal screening
CPT/HCPCS: 36415; 81220; 81222; 86787; 86803; 86850; 86900; 86901; 87340; 87389; 85025; 86762; 86780

== ENCOUNTER 2022-12-23 14:31 | Outpatient (CLI) | payer MEDICAID, SELFPAY ==
[2022-12-23] MEDS: Lactated Ringers 1,000 ML 1000 ML IV (14:50)
[2022-12-23 15:10] VITALS: BP 146/66; PULSE 50
[2022-12-23 15:23] LABS: Source Nasal/Nares
[2022-12-23] MEDS: Ondansetron 4 MG/2 ML VIAL IVP ×2 (15:25→16:20)
[2022-12-23] MEDS: Lactated Ringers 250 ML IV (15:53)
[2022-12-23 16:01] LABS: COVID-19 PCR Negative (Negative)
[2022-12-23 16:14] VITALS: BP 133/72; PULSE 64; RESP 18; TEMP 36.6; O2SAT 98
[2022-12-23] MEDS: Prochlorperazine 10 MG/2 ML VIAL 5 MG IVP (17:09)
== END 2022-12-23 17:52 | disposition home or self-care (01) ==
LOC: BCD 14:32 → OBS 14:36
PROVIDERS: PCP Family Medicine; Visit Provider Obstetrics & Gynecology
DX: O21.9 Vomiting of pregnancy, unspecified (principal); Z3A.14 14 weeks gestation of pregnancy
CPT/HCPCS: 87635; 96360; 96361; 96374; G0378; J0780; J2405

== ENCOUNTER 2023-01-10 02:30 | Outpatient (CLI) | payer MEDICAID, SELFPAY ==
[2023-01-12 14:39] LABS: AFP 50.1 ng/mL; Cigarette smoking status non-Smoker; GA used in risk estimate Scan estimate; IVF Pregnancy No; Initial or repeat testing Initial testing; Insulin dependent diabetes No; Maternal Weight 107 lbs; Number of Fetuses 1; Physician Phone Number 802-748-7300; Prev Pregnancy w/NTD No; RECOMMENDED FOLLOW UP None.; Results Summary Normal risk
== END 2023-01-10 02:31 | disposition home or self-care (01) ==
LOC: LBO 02:30
PROVIDERS: PCP Family Medicine; Visit Provider Advanced Practice Midwife
DX: Z34.92 Encounter for supervision of normal pregnancy, unspecified, second trimester (principal); Z3A.16 16 weeks gestation of pregnancy; Z36.89 Encounter for other specified antenatal screening
CPT/HCPCS: 36415; 82105

== ENCOUNTER 2023-01-10 17:59 | Outpatient (REF) | payer MEDICAID, SELFPAY ==
[2023-01-10 20:16] LABS: *AMPHETAMINES SCREEN URINE Negative (Negative); *BARBITURATES SCREEN URINE Negative (Negative); *BENZODIAZEPINES SCREEN URINE Negative (Negative); Cannabinoids THC Positive (Negative); Cocaine Screen,Urine Negative (Negative); METHADONE URINE SCREEN Negative (Negative); OPIATES URINE SCREEN Negative (Negative)
[2023-01-10 20:17] LABS: Tricyclic Antidepressants Negative (Negative)
[2023-01-17 18:25] LABS: Buprenorphine Negative ng/mL (Cutoff: 5.0); Norbuprenorphine Negative ng/mL (Cutoff: 2.5)
== END 2023-01-10 18:00 | disposition home or self-care (01) ==
LOC: LBN 17:59
PROVIDERS: PCP Family Medicine; Visit Provider Advanced Practice Midwife
DX: O99.322 Drug use complicating pregnancy, second trimester (principal); Z3A.16 16 weeks gestation of pregnancy
CPT/HCPCS: 80307; 80348; 87086

== ENCOUNTER 2023-01-24 05:16 | Emergency (ER) | payer MEDICAID, SELFPAY ==
[2023-01-24 05:24] VITALS: BP 103/51; PULSE 62; RESP 18; TEMP 36.9; O2SAT 100
--- NOTE | 2023-01-24 05:44 | ED.GENADUL_ITS ---
Discharge Plan Disposition Patient Disposition: Home Condition: Stable Discharge Details Clinical Impression: Vaginal bleeding before 22 weeks gestation Primary Care Provider: lBanche Lema ED Provider: Osmani Florentino Home Meds and New Rx's Prescriptions: Continued Flintstones Multivitamin Tablet,Chewable 1 tab PO DAILY bupropion HCl [Wellbutrin SR] 150 mg tablet sustained-release 12 hr 150 mg PO BID ondansetron 4 mg tablet,disintegrating 4 mg PO Q6H PRN (Reason: nausea and vomiting) Qty: 10 0RF Discharge Instructions Additional Instructions: You have a well appearing intrauterine on ultrasound follow up with your obgyn as scheduled this week if you have severe abdominal pain, difficulty breathing, or feel more ill, return to the emergency department Medical Decision Making 37 yo at approximately 16 weeks per patient comes in with light vaginal spotting shortly after having intercourse. Denies abdominal pain, denies n/v, no dyspnea or chest pain. She arrives stable and speaking clearly. she has a gravid uterus consistent with approximately 16 weeks . She has no abdominal tenderness. I performed bedside u/s and has live iup, fhr found to be 150. She is 0+ based on priorlabs. Given reassuring appearing iup and only faint bleeding pelvic exam deferred, she has obgyn appt at [facility] Monday. She is stable for d/c, return precautions given Differential Diagnosis Differential Diagnosis: threated , subchorionic hemorrhage HPI General Mode of arrival: ambulatory . Date/Time Provider Initiated Documentation: 01/24/23 05:17 . Limitations to Documentation: no limitations . Information obtained by: patient . History of Present Illness 37 year old F presents to the emergency department with the chief complaint of vaginal bleeding, described as mild, Patient started experiencing this hour(s) (2) and it has been intermittent. No relieving factors improve symptom(s), No exacerbating factors reported . Patient notes no other symptoms.. Patient did receive the following treatments prior to arrival, none Related Data Home Medications Medication Instructions Recorded Confirmed bupropion HCl 150 mg tablet,12 hr 150 mg PO BID 11/16/21 01/24/23 sustained-release (Wellbutrin SR) pediatric multivitamin 1 tab PO DAILY 12/13/22 01/10/23 (Flintstones Multivitamin chewable tablet) ondansetron 4 mg disintegrating 4 mg PO Q6H PRN nausea and 12/23/22 01/24/23 tablet vomiting #10 tabs Previous Rx's Medication Instructions Recorded ondansetron 4 mg disintegrating 4 mg PO Q6H PRN nausea and 12/23/22 tablet vomiting #10 tabs Allergies Allergy/AdvReac Type Severity Reaction Status Date / Time vinegar Allergy Uncoded 01/24/23 05:33 General Stated 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 Review of Systems All systems reviewed & are unremarkable except as noted in HPI and below Constitutional Constitutional: Denies chills, Denies fever(s) and Denies weakness Cardiovascular Cardiovascular: Denies chest pain and Denies dyspnea Respiratory Respiratory: Denies cough and Denies dyspnea Gastrointestinal Gastrointestinal: Denies abdominal pain, Denies nausea and Denies vomiting Genitourinary Genitourinary: Denies dysuria Musculoskeletal Musculoskeletal: Denies joint swelling Integumentary/Breasts Skin/Breast: Denies rash Neurologic Neurologic: Denies weakness PFSH All Active Problems (Updated 01/24/23 @ 05:48 by Osmani Florentino MD) Vaginal bleeding before 22 weeks gestation (Acute) Low grade squamous intraepithelial lesion (LGSIL) at risk for high grade squamous intraepithelial lesion (HGSIL) on cytologic smear of cervix (Acute) 2014 and 2019 pap MICHAEL, neg HR HPV 2022 + LGSIL cannot exclude HSIL + HR HPV colpo recommended Marijuana smoker (Acute) Advanced maternal age, primigravida in second trimester, antepartum (Acute) Bulging lumbar disc (Acute) Heart murmur (Acute) H/O hernia repair (Chronic) repaired in infancy Back pain (Acute) Scoliosis associated with other condition (Acute) bulging disc Anxiety (Chronic 06/14/16) (Acute) Abdominal pain (Acute) Constipation (Acute) Migraine (Chronic) Interstitial cystitis (Acute) Medical History (Updated 01/24/23 @ 05:48 by Osmani Florentino MD) Anxiety Biliary colic Depressive disorder Encounter for removal of intrauterine contraceptive device (12/17/15) Enlarged uterus Facial paresthesia Migraine (06/14/16) Surgical History (Updated 12/13/22 @ 14:02 by Liss Cuello CNM) History of Surgical Procedure a. Laparoscopic cholecystectomy. Family History (Updated 12/13/22 @ 13:39 by Liss Cuello CNM) Father Diabetes Heart disease Atrial fibrillation Paternal Grandfather Hypertension Dementia alzheimers Renal failure Diabetes Paternal Grandmother Dementia COPD (chronic obstructive pulmonary disease) Mother Cancer Social History Smoking/Tobacco Use Status: Never Smoking risk assessment performed?: Yes Alcohol Intake: current Alcohol Intake frequency: 0-2 drinks per day Drug use: Daily Substance use type: marijuana Details: Smoking a few times a day, cut back since finding out she was Do you feel safe at home: Yes Do you feel safe in your relationship?: Yes History History 2 Para 1 Hx # Term Pregnancies 1 Multiple births 0 Hx # Pregnancies 0 Ectopic pregnancies 0 AB induced 0 Hx Number of Living Children 1 AB spontaneous 0 Past Pregnancies Del. Date GA/Weeks # Preg Succ Route Wgt Sex Labor Lgth Anesth esia Location [facility] 04/07/08 39 No Yes vaginal 2863.302 g Male [address] [place] [address] Delivery Date: 04/07/08 Last Updated by: Liss Cuello [facility]M [place] [facility]. labor and bedrest. Exam Const General: no acute distress Orientation: alert HENMT Head: normal to inspection Ears: external ears normal General nose exam: external nose normal Mouth: moist mucous membranes Eyes General: appearance normal, both eyes and all related structures Neck Neck: normal visual inspection Resp Effort & Inspection: normal respiratory effort and able to speak in complete sentences Cardio Rate: regular rate GI Palpation: soft and nontender Skin General skin exam: no rashes or lesions noted Neuro General: patient alert and patient oriented x3 Extrem General: normal to inspection Psych Mental Status: mental status grossly normal Course Vital Signs Vital signs: Vital Signs Temperature 36.9 C 01/24/23 05:24 Pulse 62 01/24/23 05:24 Respiratory Rate 18 01/24/23 05:24 Blood Pressure 103/51 L 01/24/23 05:24 Pulse Oximetry 100 01/24/23 05:24 Temperature 36.9 C 01/24/23 05:24 Temperature Source Skin 01/24/23 05:24 Pulse 62 01/24/23 05:24 Respiratory Rate 18 01/24/23 05:24 Respiratory Effort Normal 01/24/23 05:27 Blood Pressure 103/51 L 01/24/23 05:24 Pulse Oximetry 100 01/24/23 05:24 Oxygen Delivery Method Room Air 01/24/23 05:24 Oxygen Flow Rate 0 01/24/23 05:24 Pain Level 2 01/24/23 05:27 POCUS Exam (ED) Limited OB Exam DATE OF EXAM:: 01/24/23 TIME OF EXAM:: 05:47 PROVIDER THAT PERFORMED THE STUDY: Osmani Florentino IS THIS A REPEAT EXAM DURING THIS ENCOUNTER: No Type of Exam: Pelvic OB Trans Abdominal REASON FOR EXAM: Vaginal Bleeding VISUALIZED STRUCTURES: Uterus PERTINENT FINDINGS/IMPRESSION: cardiac activity Exam Complete.
== END 2023-01-24 05:53 | disposition home or self-care (01) ==
PROVIDERS: Emergency Provider Emergency Medicine; PCP Family Medicine
DX: O20.9 Hemorrhage in early pregnancy, unspecified (principal)
CPT/HCPCS: 76815; 99284; 99283

== ENCOUNTER 2023-03-12 15:52 | Observation (INO) | payer MEDICAID, SELFPAY ==
[2023-03-12] VITALS (8 sets, daily range): BP systolic 106–145; BP diastolic 55–100; PULSE 52–76; RESP 20–24; TEMP 36.8–36.9
--- NOTE | 2023-03-12 16:02 | NUR.NOTE ---
Nursing Note:pt was taken straight up to Center. from triage box.
[2023-03-12 16:34] LABS: Bilirubin Negative (Negative); Blood Trace-intact (Negative); Clarity Clear (Clear); Glucose Negative (Negative); Ketones Negative (Negative); Leukocyte Esterase Trace (Negative); Nitrite Negative (Negative); Specific Gravity 1.015 (1.005-1.025); Urobilinogen 0.2 mg/dL (Up to 0.2); pH 8.5 (5-8)
[2023-03-12 16:41] LABS: Bacteria Few HPF (Negative); C & S Indicated? No/Sq. Contamination; Casts Negative LPF (Negative); Crystals Negative HPF (Negative); Epithelial Cells Moderate HPF (Negative); Mucus Negative (Negative); RBC 0-2 HPF (0-2)
--- NOTE | 2023-03-12 17:10 | HPE_ITS ---
Date of service: 03/12/23 Time of Service: 17:00 Assessment and Plan Assessment and plan (1) contractions: Status: Acute Assessment and plan: 1. Betamethasone #1 given at 17:26 for lung maturity 2. Tocolysis with Nifedipine 20mg PO x1 ~18:00 3. FFN collected and returned positive. 4. Transfer to [facility] arranged. Spoke to Dr. James. Awaiting transport. 5. IVF: LR 6. Penicillin given for GBS ppx 7. If transport is not available shortly then would plan for magnesium for neuroprotection. OB-HPI Labor/Delivery History of Present Illness Reason for Visit: rule out labor Chief Complaint: Uterine Contractions. CORNELIO Calculator Estimated Delivery Date Method Current WG Current Estimate 06/22/23 Ultrasound #1 25w 3d Other Estimates 06/14/23 LMP (Uncertain) 26w 4d Comments: Pt says she was at work overnight and around 5am she began to experience some abdominal pain. She went home and went to sleep around 6:30-7 and slept until 2p without any issues. As soon as she woke up she began to experience the abdominal pain again. It starts across the top of her belly and spreads to the sides and into her back. It is intermittent but hard to say how often. No bleeding, loss of fluid or unusual discharge. Good movement. No dysuria, nausea or vomiting. She was able to eat before she came in. She denies tenderness to palpation just the pain with what she says feels like co ntractions. She nirav labor in her prior . She says she overdid it physically and lost her mucus plug around 30wks, was seen in the ED and taken out of work but never had contractions like this. History of Present Expected Delivery Route/Plan FOB: Ramon Bowser-first child together (he has 2 children and 2 step children) Specific Issues/Plan 1. First trimester spotting- US scheduled at 2/16- 8 weeks gestation with subchorionic hemorrhage 2. AMA - panorama-low risk , CF neg, Maternal AFP only, normal risk, [place] [place] 2 US -normal 3. History of anxiety and depression- treatment with wellbutrin 4. Scoliosis - offered anesthesia consult 5. low back pain and bulging disc 6. Heart murmur and palpitations - referral to PCP for evaluation 7. Marijuana use - THC+, counselled, has been cutting down, UDS + THC at 16 weeks repeat UDS @ 28 wks ___ 8. Anemia - 10.7/31.5- taking flinstones complete. 9. Pap LGSIL cannot exclude HSIL + HR HPV colposcopy recommended. LB 01/10/23. Repeat colp at 6 week PPE Review of Systems Constitutional Constitutional: Denies chills and Denies fever(s) Cardiovascular Cardiovascular: Denies chest pain and Denies dyspnea Respiratory Respiratory: Denies dyspnea Gastrointestinal Gastrointestinal: Denies nausea and Denies vomiting Genitourinary Genitourinary: Reports system reviewed and no additional complaints, except as documented PFSH All Active Problems (Updated 03/12/23 @ 17:52 by Thao Gomez MD) contractions (Acute) Constipation (Acute) Migraine (Chronic) (Acute) Anxiety (Chronic 06/14/16) Scoliosis associated with other condition (Acute) bulging disc Back pain (Acute) H/O hernia repair (Chronic) repaired in infancy Heart murmur (Acute) Bulging lumbar disc (Acute) Advanced maternal age, primigravida in second trimester, antepartum (Acute) Marijuana smoker (Acute) Low grade squamous intraepithelial lesion (LGSIL) at risk for high grade squamous intraepithelial lesion (HGSIL) on cytologic smear of cervix (Acute) 2014 and 2019 pap MICHAEL, neg HR HPV 2022 + LGSIL cannot exclude HSIL + HR HPV colpo recommended Medical History (Updated 03/12/23 @ 17:52 by Thao Gomez MD) Anxiety Biliary colic Depressive disorder Facial paresthesia Interstitial cystitis Surgical History (Updated 12/13/22 @ 14:02 by Liss Cuello CNM) History of Surgical Procedure a. Laparoscopic cholecystectomy. Family History (Updated 12/13/22 @ 13:39 by Liss Cuello CNM) Father Diabetes Heart disease Atrial fibrillation Paternal Grandfather Hypertension Dementia alzheimers Renal failure Diabetes Paternal Grandmother Dementia COPD (chronic obstructive pulmonary disease) Mother Cancer Social History Smoking/Tobacco Use Status: Never Smoking risk assessment performed?: Yes Alcohol Intake: current Alcohol Intake frequency: 0-2 drinks per day Drug use: Daily Substance use type: marijuana Details: Smoking a few times a day, cut back since finding out she was Do you feel safe at home: Yes Do you feel safe in your relationship?: Yes History History 2 Para 1 Hx # Term Pregnancies 1 Multiple births 0 Hx # Pregnancies 0 Ectopic pregnancies 0 AB induced 0 Hx Number of Living Children 1 AB spontaneous 0 Past Pregnancies Del. Date GA/Weeks # Preg Succ Route Wgt Sex Labor Lgth Anesth esia Location Prov Complic 04/07/08 39 No Yes vaginal 6 lb 5 oz Male 12 [facility] [address] Huseyin Moon Delivery Date: 04/07/08 Last Updated by: Thao Gomez MD [facility] Andrey ADHD. lost her mucus plug early and put on bedrest. Meds Allergies and Home Medications Allergies Allergy/AdvReac Type Severity Reaction Status Date / Time vinegar Allergy Uncoded 02/17/23 13:15 Home Medications Medication Instructions Recorded Confirmed Type bupropion HCl 150 mg tablet,12 hr 150 mg PO BID 11/16/21 01/24/23 History sustained-release (Wellbutrin SR) pediatric multivitamin 1 tab PO DAILY 12/13/22 01/10/23 History (Flintstones Multivitamin chewable tablet) ondansetron 4 mg disintegrating 4 mg PO Q6H PRN nausea and 12/23/22 01/24/23 Rx tablet vomiting #10 tabs Exam Physical Exam Vital signs: BP 145/100 H 03/12/23 15:59 Vital Signs Reviewed: Yes Narrative: Repeat BP after arrival to center wnl: 106/54 Detailed Labor and Delivery Exam Dilation: 0 Effacement (%): 20 station: -4 Cervix position: anterior Consistency: soft Miranda Score: Cervical Points Exam 0 1 2 3 Dilation Closed 1-2cm 3-4 cm 5-6cm Effacement 0-30% 40-50% 60-70% 80% Consistency Firm Medium Soft Station -3 -2 -1,0 +1,+2 Position Posterior Mid Anterior Fetus A Heart Rate Baseline: 145 Monitor Accelerations: 10 X 10 Monitor Decelerations: None Variability: Moderate (6-25 BPM) Presentation: Breech (on bedside sono) Categories: Category I Respiratory Exam Respiratory Exam: Normal Detailed Abdominal Exam Comments: Mild tenderness supraumbilical. No other significant abdominal tenderness. Mild contractions palpated. Detailed Exam Comments: No visual blood or pooling in the vagina. Cx: external os 2cm dilated, internal os closed. Cervix soft and anterior. Extremities Exam Extremities Exam: Normal Results Results Group Beta Strep: Not Done Blood Type: O+ Rubella Status: Immune Varicella Immunity: Immune Abnormal Lab Findings: Abnormal Labs 03/12/23 16:15 Urine pH 8.5 H Urine Blood Trace-intact H Ur Leukocyte Esterase Trace H Additional Findings Results: FFN+ Risk Assessment Risk for Shoulder Dystocia Historical/Initial OB: NEGATIVE FOR: Pelvic Abnormality, Pre- BMI>30, Previous Shoulder Dystocia or Previous Macrosomia Risk for Pre-Eclampsia Date Initiated/Initials: KM 12/13/22 Yes, if one or more: NEGATIVE FOR: Hx Pre-E/Gest HTN, Chronic HTN, Multiple Gestation, Pre-gestational DM, Renal Disease, Systemic Lupus or APA Syndrome Yes, if 2 or more: POSITIVE FOR: Age>= 35 yrs and >10yr btwn pregnancies; NEGATIVE FOR: Nulliparity, BMI>30, ethinicty, Mother/Sister w/ Pre-E or Previous IUGR Risk for Post- Hemorrhage Initial: NEGATIVE FOR: Multiple Gestation, Previous PPH, Known Clotting Deficiency, Grand Multiparity or Anticoagulation Risks Reviewed Risks Reviewed Upon Admission: Yes
[2023-03-12] MEDS: Betamet Acet/Betamet Na Ph Inj. 30 MG/5 ML 12 MG IM (17:26)
[2023-03-12] MEDS: NIFEdipine 10 MG CAP 20 MG PO (17:46)
[2023-03-12 17:47] LABS: Fetal Fibronectin Positive (Negative)
[2023-03-12] MEDS: Lactated Ringers 1,000 ML 150 ML IV (18:10)
[2023-03-12] MEDS: Normal Saline 100 ML (18:15)
[2023-03-12] MEDS: Penicillin G POT. 5,000,000 UNITS in Normal Saline 100 ML 200 UNITS IVPB (19:12)
[2023-03-12] MEDS: Normal Saline Flush 10 ML SYR IVP (19:20)
--- NOTE | 2023-03-12 22:49 | ED.GENADUL_ITS ---
Discharge Plan Disposition Patient Disposition: Admit to [facility] Condition: Serious Discharge Details Clinical Impression: contractions Admit Date/Time: 03/12/23 16:07 Admit Provider: Thao Gomez Attending Provider: Thao Gomez Primary Care Provider: Blanche Lema ED Provider: Khushi Germain Discharge Data Discharge Date/Time-TO BE ENTERED AT DEPARTURE: 03/12/23 16:03 Medical Decision Making Patient is in acute distress, she is presenting with concern for labor, discussed case with Dr. Morocho and we are encouraged to send patient up to the center immediately, she was notably hypertensive but in acute is distress at time of assessment, she has no visible vaginal bleeding, her abdomen is tense, likely consistent with contractions There is no report of active pt unable to relay how far apart her contractions are She is alert and oriented at time of initial assessment pt is stable for transfer to [facility] at this time HPI General Date/Time Provider Initiated Documentation: 03/12/23 15:57 . HPI Narrative: This 37-year-old female presents with report of abdominal cramping that started at 6:00 this morning. She states that she feels like contractions. She is 2 para 1. She denies any vaginal bleeding. She has not called her OB. She states the pain is now severe. Denies history of preeclampsia. Denies any headaches, fever, chills, urinary symptoms. Denies any known trauma. Related Data Home Medications Medication Instructions Recorded Confirmed bupropion HCl 150 mg tablet,12 hr 150 mg PO BID 11/16/21 01/24/23 sustained-release (Wellbutrin SR) pediatric multivitamin 1 tab PO DAILY 12/13/22 01/10/23 (Flintstones Multivitamin chewable tablet) ondansetron 4 mg disintegrating 4 mg PO Q6H PRN nausea and 12/23/22 01/24/23 tablet vomiting #10 tabs Previous Rx's Medication Instructions Recorded ondansetron 4 mg disintegrating 4 mg PO Q6H PRN nausea and 12/23/22 tablet vomiting #10 tabs Allergies Allergy/AdvReac Type Severity Reaction Status Date / Time vinegar Allergy Uncoded 02/17/23 13:15 General Stated 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 PFSH All Active Problems (Updated 03/13/23 @ 16:46 by MARION Arias) Constipation (Acute) Migraine (Chronic) (Acute) Anxiety (Chronic 06/14/16) Scoliosis associated with other condition (Acute) bulging disc Back pain (Acute) H/O hernia repair (Chronic) repaired in infancy Heart murmur (Acute) Bulging lumbar disc (Acute) Advanced maternal age, primigravida in second trimester, antepartum (Acute) Marijuana smoker (Acute) Low grade squamous intraepithelial lesion (LGSIL) at risk for high grade squamous intraepithelial lesion (HGSIL) on cytologic smear of cervix (Acute) 2014 and 2019 pap MICHAEL, neg HR HPV 2022 + LGSIL cannot exclude HSIL + HR HPV colpo recommended contractions (Acute) Medical History (Updated 03/13/23 @ 16:46 by MARION Arias) Anxiety Biliary colic Depressive disorder Facial paresthesia Interstitial cystitis Surgical History (Updated 12/13/22 @ 14:02 by Liss Cuello CNM) History of Surgical Procedure a. Laparoscopic cholecystectomy. Family History (Updated 12/13/22 @ 13:39 by Liss Cuello CNM) Father Diabetes Heart disease Atrial fibrillation Paternal Grandfather Hypertension Dementia alzheimers Renal failure Diabetes Paternal Grandmother Dementia COPD (chronic obstructive pulmonary disease) Mother Cancer Social History Smoking/Tobacco Use Status: Never Smoking risk assessment performed?: Yes Alcohol Intake: current Alcohol Intake frequency: 0-2 drinks per day Drug use: Daily Substance use type: marijuana Details: Smoking a few times a day, cut back since finding out she was Do you feel safe at home: Yes Do you feel safe in your relationship?: Yes History History 2 Para 1 Hx # Term Pregnancies 1 Multiple births 0 Hx # Pregnancies 0 Ectopic pregnancies 0 AB induced 0 Hx Number of Living Children 1 AB spontaneous 0 Past Pregnancies Del. Date GA/Weeks # Preg Succ Route Wgt Sex Labor Lgth Anesth esia Location Prov Compl 04/07/08 39 No Yes vaginal 2863.302 g Male 14 [facility] Delivery Date: 04/07/08 Last Updated by: [facility] lost her mucus plug early and put on bedrest. Exam Narrative Exam Narrative: Patient is alert, she is in no acute distress, her abdomen is tense and diffusely tender, oriented, no peripheral edema, no pallor Course Vital Signs Vital signs: Vital Signs Blood Pressure 145/100 H 03/12/23 15:59 Temperature 36.8 C 03/12/23 18:34 Temperature Source Oral 03/12/23 18:34 Pulse 60 03/12/23 18:34 Respiratory Rate 20 03/12/23 18:34 Respiratory Depth Normal 03/12/23 16:49 Blood Pressure 120/57 L 03/12/23 18:34 Blood Pressure Mean 74 03/12/23 17:22 Pain Level 5 03/12/23 16:49 Comment unable to get vitals, pt was taken straight up to Center. from triage box. 03/12/23 15:59
--- NOTE | 2023-03-14 08:11 | W.OBNST ---
Date of service: 03/12/23 Time of Service: 18:00 NST Evaluation Reason for NST Reasons for Nonstress Test: LABOR Gestational Age Gestational Age in Weeks and Days: 25 Weeks and 3Days NST Information Date on Monitor: 03/12/23 Time on Monitor: 16:12 Date off Monitor: 03/12/23 Time off Monitor: 17:49 Total Time on Monitor: 97 NST Evaluation FHR Baseline: 145 Variability: Moderate 6-25 bpm Decelerations: None NST Results: Reactive (appropriate for gestational age) Note Ultrasound Done: N/A. NST Note NST Reviewed and Verified by: Thao Gomez
== END 2023-03-12 19:25 | disposition other institution (70) ==
LOC: ER 16:12 → OBS 03-13 10:23
PROVIDERS: Admitting Provider Obstetrics & Gynecology; Emergency Provider Physician Assistant; PCP Family Medicine; Visit Provider Obstetrics & Gynecology
DX: O60.02 Preterm labor without delivery, second trimester (principal); Z3A.25 25 weeks gestation of pregnancy; O99.342 Other mental disorders complicating pregnancy, second trimester; F41.8 Other specified anxiety disorders; O99.322 Drug use complicating pregnancy, second trimester; F12.90 Cannabis use, unspecified, uncomplicated; O99.612 Diseases of the digestive system complicating pregnancy, second trimester; O99.352 Diseases of the nervous system complicating pregnancy, second trimester; G43.909 Migraine, unspecified, not intractable, without status migrainosus; K59.00 Constipation, unspecified; M54.9 Dorsalgia, unspecified; R87.612 Low grade squamous intraepithelial lesion on cytologic smear of cervix (LGSIL); R01.1 Cardiac murmur, unspecified; O26.892 Other specified pregnancy related conditions, second trimester
CPT/HCPCS: 80053; 86900; 86901; 99285; 81003; 81015; 82731; 85025; G0378; J0702; J2540

== ENCOUNTER 2023-03-31 02:04 | Outpatient (CLI) | payer MEDICAID, SELFPAY ==
[2023-03-31 14:38] LABS: HCT 31.3 % (36.0-46.0); HGB 10.5 g/dL (11.2-15.7); MCH 29.6 pg (27.0-33.0); MCHC 33.5 % (32.0-36.0); MCV 88 fL (80-95); MPV 9.8 fL (8.0-11.0); Platelet Count 223 10^3/uL (130-400); RBC 3.55 10^6/uL (3.93-5.22); RDW 12.4 % (11.7-14.6); RDW-SD 40.3 fL; WBC 8.35 10^3/uL (4.4-10.8)
[2023-03-31 14:47] LABS: Glucose,1 Hr (Glucola) 109 mg/dL (80-140)
== END 2023-03-31 02:05 | disposition home or self-care (01) ==
LOC: LBO 02:04
PROVIDERS: PCP Family Medicine; Visit Provider Obstetrics & Gynecology Gynecology
DX: Z34.93 Encounter for supervision of normal pregnancy, unspecified, third trimester (principal); Z3A.28 28 weeks gestation of pregnancy
CPT/HCPCS: 36415; 82950; 85027

== ENCOUNTER 2023-05-18 13:41 | Outpatient (REF) | payer MEDICAID, SELFPAY ==
[2023-05-18 18:21] LABS: *AMPHETAMINES SCREEN URINE Negative (Negative); *BARBITURATES SCREEN URINE Negative (Negative); *BENZODIAZEPINES SCREEN URINE Negative (Negative); Cannabinoids THC Positive (Negative); Cocaine Screen,Urine Negative (Negative); METHADONE URINE SCREEN Negative (Negative); OPIATES URINE SCREEN Negative (Negative)
[2023-05-18 18:22] LABS: Tricyclic Antidepressants Negative (Negative)
[2023-05-26 11:51] LABS: Buprenorphine Negative ng/mL (Cutoff: 5.0)
== END 2023-05-18 13:42 | disposition home or self-care (01) ==
LOC: LBN 13:41
PROVIDERS: PCP Family Medicine; Visit Provider Obstetrics & Gynecology
DX: Z34.93 Encounter for supervision of normal pregnancy, unspecified, third trimester (principal); Z3A.35 35 weeks gestation of pregnancy; Z36.85 Encounter for antenatal screening for Streptococcus B
CPT/HCPCS: 80307; 80348; 87081

== ENCOUNTER 2023-05-20 19:46 | Emergency (ER) | payer MEDICAID, SELFPAY | END 2023-05-20 19:51 | disposition left against medical advice (07) | PROVIDERS: PCP Family Medicine | DX: Z53.21 Procedure and treatment not carried out due to patient leaving prior to being seen by health care provider (principal) ==

== ENCOUNTER 2023-05-20 20:01 | Outpatient (CLI) | payer MEDICAID, SELFPAY ==
[2023-05-20 20:10] VITALS: BP 118/62; PULSE 54; TEMP 36.7
--- NOTE | 2023-05-20 20:53 | W.OBNST ---
Date of service: 05/20/23 Time of Service: 20:54 NST Evaluation Reason for NST Reasons for Nonstress Test: LABOR Gestational Age Gestational Age in Weeks and Days: 35 Weeks and 2Days Test and Monitor Explained Test/Monitor Explained: Test Explained and Monitor Explained Vital Signs Blood Pressure: 118/62 Pulse: 54 Temperature: 98.1 F Urine Results Urine Protein: Negative Urine Ketones: Negative Urine Glucose: Negative Urine Blood: Negative NST Information Date on Monitor: 05/20/23 Time on Monitor: 20:00 NST Evaluation Patient States Movement: Present FHR Baseline: 120 Variability: Minimal <6 bpm Accelerations: None Note Ultrasound Done: Presentation Presentation Results: vertex Coding for Presentation w/NST: Completed Exam. NST Note Note: Pt with intermittent contractions since last night. She was able to sleep overnight. About 1hr ago the contractions became stronger. No bleeding or leaking fluid. Good movement. H/o ctxs at 29wks with 2 day stay at [facility] While there she signed tubal papers and would desire a BTL if she needed a CS. NST Reviewed and Verified by: Thao Gomez
[2023-05-20 20:55] VITALS: BP 118/62; PULSE 54; TEMP 36.7
[2023-05-21 06:54] VITALS: BP 107/56; PULSE 74; TEMP 36.6
[2023-05-21 06:56] VITALS: BP 107/56; PULSE 74
--- NOTE | 2023-05-21 09:09 | OBCE_ITS ---
Date of service: 05/21/23 Time of Service: 08:00 Assessment and Plan Assessment and plan (1) contractions: Status: Acute Assessment and plan: Pt was observed for over 12hrs with no significant cervical change and decrease in the frequency and strength of her contractions so she desired d/c home. History of Present Illness Narrative: Pt arrived last evening with intermittent painful contractions. She was found to be 3cm and josefa irregularly. Overnight the contractions came and went some. She was able to get minimal sleep. During this she was transferred to [facility] for labor at 29wks but did not progress. During her prior she says she had ctxs like this that were intermittent for over 24hrs. Then when she did go into labor it was very quick. No bleeding or LOF. Good movement. PFSH All Active Problems (Updated 03/20/23 @ 14:25 by Lennie Ojeda MD) Restless leg syndrome in (Acute) 03/20/23. Rx with vistaril. contractions (Acute) Constipation (Acute) Migraine (Chronic) (Acute) Anxiety (Chronic 06/14/16) Scoliosis associated with other condition (Acute) bulging disc Back pain (Acute) H/O hernia repair (Chronic) repaired in infancy Heart murmur (Acute) Bulging lumbar disc (Acute) Advanced maternal age, primigravida in second trimester, antepartum (Acute) Marijuana smoker (Acute) Low grade squamous intraepithelial lesion (LGSIL) at risk for high grade squamous intraepithelial lesion (HGSIL) on cytologic smear of cervix (Acute) 2014 and 2019 pap MICHAEL, neg HR HPV 2022 + LGSIL cannot exclude HSIL + HR HPV colpo recommended Medical History (Updated 03/20/23 @ 14:25 by Lennie Ojeda MD) Anxiety Biliary colic Depressive disorder Facial paresthesia Interstitial cystitis Surgical History (Updated 12/13/22 @ 14:02 by Liss Cuello CNM) History of Surgical Procedure a. Laparoscopic cholecystectomy. Family History (Updated 12/13/22 @ 13:39 by Liss Cuello CNM) Father Diabetes Heart disease Atrial fibrillation Paternal Grandfather Hypertension Dementia alzheimers Renal failure Diabetes Paternal Grandmother Dementia COPD (chronic obstructive pulmonary disease) Mother Cancer Social History Smoking/Tobacco Use Status: Never Smoking risk assessment performed?: Yes Alcohol Intake: current Alcohol Intake frequency: 0-2 drinks per day Drug use: Daily Substance use type: marijuana Details: Smoking a few times a day, cut back since finding out she was Do you feel safe at home: Yes Do you feel safe in your relationship?: Yes History History 2 Para 1 Hx # Term Pregnancies 1 Multiple births 0 Hx # Pregnancies 0 Ectopic pregnancies 0 AB induced 0 Hx Number of Living Children 1 AB spontaneous 0 Past Pregnancies Del. Date GA/Weeks # Preg Succ Route Wgt Sex Labor Lgth Anesth esia Location Prov Complic 04/07/08 39 No Yes vaginal 6 lb 5 oz Male [address] Huseyin Moon Delivery Date: 04/07/08 Last [facility]: [facility] lost her mucus plug early and put on bedrest. Results Last Vital Signs Pulse 74 05/21/23 06:56 BP 107/56 L 05/21/23 06:56
[2023-05-22 09:43] VITALS: BP 110/74; PULSE 71
== END 2023-05-21 16:05 | disposition home or self-care (01) ==
LOC: BCD 20:01 → OBS 22:42 → BCD 05-22 16:09
PROVIDERS: PCP Family Medicine; Referring Provider Obstetrics & Gynecology; Visit Provider Obstetrics & Gynecology
DX: O60.03 Preterm labor without delivery, third trimester (principal); Z3A.35 35 weeks gestation of pregnancy; G25.81 Restless legs syndrome; K59.00 Constipation, unspecified; G43.909 Migraine, unspecified, not intractable, without status migrainosus; F41.9 Anxiety disorder, unspecified; M41.86 Other forms of scoliosis, lumbar region; F12.90 Cannabis use, unspecified, uncomplicated; O09.523 Supervision of elderly multigravida, third trimester; F32.A Depression, unspecified; O28.2 Abnormal cytological finding on antenatal screening of mother; O99.353 Diseases of the nervous system complicating pregnancy, third trimester; O99.323 Drug use complicating pregnancy, third trimester; O99.343 Other mental disorders complicating pregnancy, third trimester; F41.8 Other specified anxiety disorders; O99.613 Diseases of the digestive system complicating pregnancy, third trimester; O26.893 Other specified pregnancy related conditions, third trimester; O47.00 False labor before 37 completed weeks of gestation, unspecified trimester
CPT/HCPCS: 59025; G0378

== ENCOUNTER 2023-06-09 22:34 | Inpatient (IN) | payer MEDICAID, SELFPAY ==
[2023-06-09 21:49] VITALS: BP 111/61; PULSE 81; TEMP 36.9
[2023-06-09 21:52] VITALS: BP 111/61; PULSE 60
--- NOTE | 2023-06-09 22:36 | HPE_ITS ---
Date of service: 06/09/23 Time of Service: 22:47 Assessment and Plan Assessment and plan (1) Uterine contractions: Assessment and plan: P1 @38.1wks in likely early labor. GBS neg. Pt admitted. Desires nitrous oxide for pain management. Encouraged to get out of bed and stand/use the ball/move. Anticipate NVD. OB-HPI Labor/Delivery History of Present Illness Reason for Visit: R/O Labor Chief Complaint: Uterine Contractions. CORNELIO Calculator Estimated Delivery Date Method Current WG Current Estimate 06/22/23 Ultrasound #1 38w 1d Other Estimates 06/14/23 LMP (Uncertain) 39w 2d Comments: Pt started josefa about 1.5hrs ago. They are fairly frequent and more intense than previously. No LOF or bleeding. Feeling normal movement today. History of Present Expected Delivery Route/Plan FOB: Ramon Bowser-first child together (he has 2 children and 2 step children) Specific Issues/Plan 1. AMA - panorama-low risk , CF neg, Maternal AFP only, normal risk, [place] [place] 2 [place] -normal 2. History of anxiety and depression- treatment with wellbutrin 3. Scoliosis, low back pain and bulging disc - offered anesthesia consult 4. Heart murmur and palpitations - referral to PCP for evaluation 5. Marijuana use - THC+, counselled, has been cutting down, UDS + THC at 16 weeks repeat UDS @ 28 wks ___ 6. Anemia - 10.7/31.5- taking flinstones complete. 7. Pap LGSIL cannot exclude HSIL + HR HPV colposcopy recommended. LB 01/10/23. Repeat colp at 6 week PPE 8. contractions: transfer to [facility] @29wks - d/travis 2 days later s/p betamethasone 9. Desires BTL if needs a CS - federal consent signed at [facility] and scanned into [employer]. Review of Systems Constitutional Constitutional: Reports system reviewed and no additional complaints, except as documented Gastrointestinal Gastrointestinal: Denies nausea and Denies vomiting Genitourinary Genitourinary: Reports system reviewed and no additional complaints, except as documented PFSH All Active Problems (Updated 06/09/23 @ 22:46 by Thao Gomez MD) Restless leg syndrome in (Acute) 03/20/23. Rx with vistaril. Constipation (Acute) Migraine (Chronic) (Acute) Anxiety (Chronic 06/14/16) Scoliosis associated with other condition (Acute) bulging disc Back pain (Acute) Heart murmur (Acute) Bulging lumbar disc (Acute) Advanced maternal age, primigravida in second trimester, antepartum (Acute) Marijuana smoker (Acute) Low grade squamous intraepithelial lesion (LGSIL) at risk for high grade squamous intraepithelial lesion (HGSIL) on cytologic smear of cervix (Acute) 2014 and 2019 pap MICHAEL, neg HR HPV 2022 + LGSIL cannot exclude HSIL + HR HPV colpo recommended Medical History (Updated 06/09/23 @ 22:46 by Thao Gomez MD) Anxiety Biliary colic Depressive disorder Facial paresthesia Interstitial cystitis contractions Uterine contractions Surgical History (Updated 06/09/23 @ 22:45 by Thao Gomez MD) H/O hernia repair repaired in infancy History of Surgical Procedure a. Laparoscopic cholecystectomy. Family History (Updated 12/13/22 @ 13:39 by Liss Cuello CNM) Father Diabetes Heart disease Atrial fibrillation Paternal Grandfather Hypertension Dementia alzheimers Renal failure Diabetes Paternal Grandmother Dementia COPD (chronic obstructive pulmonary disease) Mother Cancer Social History Smoking/Tobacco Use Status: Never Smoking risk assessment performed?: Yes Alcohol Intake: current Alcohol Intake frequency: 0-2 drinks per day Drug use: Daily Substance use type: marijuana Details: Smoking a few times a day, cut back since finding out she was Do you feel safe at home: Yes Do you feel safe in your relationship?: Yes History History 2 Para 1 Hx # Term Pregnancies 1 Multiple births 0 Hx # Pregnancies 0 Ectopic pregnancies 0 AB induced 0 Hx Number of Living Children 1 AB spontaneous 0 Past Pregnancies Del. Date GA/Weeks # Preg Succ Route Wgt Sex Labor Lgth Anesth esia Location [facility] Complic 04/07/08 39 No Yes vaginal 6 lb 5 oz Male [facility] [address] Huseyin Moon Delivery Date: 04/07/08 Last Updated by: Thao Gomez MD [facility] Andrey ADHD. lost her mucus plug early and put on bedrest. Meds Allergies and Home Medications Allergies Allergy/AdvReac Type Severity Reaction Status Date / Time vinegar Allergy Uncoded 06/07/23 13:03 Home Medications Medication Instructions Recorded Confirmed Type bupropion HCl 150 mg tablet,12 hr 150 mg PO BID 11/16/21 06/01/23 History sustained-release (Wellbutrin SR) pediatric multivitamin 1 tab PO DAILY 12/13/22 06/01/23 History (Flintstones Multivitamin chewable tablet) ondansetron 4 mg disintegrating 4 mg PO Q6H PRN nausea and 12/23/22 06/01/23 Rx tablet vomiting #10 tabs hydroxyzine pamoate 25 mg capsule 25 mg PO QHS #30 caps 03/20/23 06/01/23 Rx (Vistaril) Exam Physical Exam Vital signs: Pulse BP 60 111/61 06/09/23 21:52 06/09/23 21:52 Vital Signs Reviewed: Yes Detailed Labor and Delivery Exam Dilation: 4 Effacement (%): 70 station: -2 Cervix position: mid Consistency: medium Miranda Score: Cervical Points Exam 0 1 2 3 Dilation Closed 1-2cm 3-4 cm 5-6cm Effacement 0-30% 40-50% 60-70% 80% Consistency Firm Medium Soft Station -3 -2 -1,0 +1,+2 Position Posterior Mid Anterior Amniotic Membrane Status: Intact Fetus A Heart Rate Baseline: 150 Monitor Accelerations: 15 X 15 Monitor Decelerations: Variable (occasional, small) Variability: Moderate (6-25 BPM) Detailed HEENT Exam Head: Present normocephalic and atraumatic Detailed Abdominal Exam Comments: gravid, nontender Detailed Neurological Exam Neurological: Present alert, oriented X3 and CN II-XII intact DetailedPsychiatric Exam Psychiatric: Present normal affect, normal thought process and cooperative Results Results Group Beta Strep: Negative Blood Type: O+ Rubella Status: Immune Varicella Immunity: Immune Risk Assessment Risk for Shoulder Dystocia Historical/Initial OB: NEGATIVE FOR: Pelvic Abnormality, Pre- BMI>30, Previous Shoulder Dystocia or Previous Macrosomia 36 Weeks: NEGATIVE FOR: Current Gestational DM, EFW>4500gms or Maternal Weight Gain>40lbs Date/Initial: KJ 05/26/2023 Delivery Plan @ 36wks: Anticipate vaginal delivery Risk for Pre-Eclampsia Date Initiated/Initials: KM 12/13/22 Yes, if one or more: NEGATIVE FOR: Hx Pre-E/Gest HTN, Chronic HTN, Multiple Gestation, Pre-gestational DM, Renal Disease, Systemic Lupus or APA Syndrome Yes, if 2 or more: POSITIVE FOR: Age>= 35 yrs and >10yr btwn pregnancies; NEGATIVE FOR: Nulliparity, BMI>30, ethinicty, Mother/Sister w/ Pre-E or Previous IUGR Risk for Post- Hemorrhage Initial: NEGATIVE FOR: Multiple Gestation, Previous PPH, Known Clotting Deficiency, Grand Multiparity or Anticoagulation Risks Reviewed Risks Reviewed Upon Admission: Yes
[2023-06-09 22:59] LABS: HCT 32.1 % (36.0-46.0); HGB 10.6 g/dL (11.2-15.7); MCH 28.3 pg (27.0-33.0); MCV 86 fL (80-95); MPV 11.1 fL (8.0-11.0); Platelet Count 235 10^3/uL (130-400); RBC 3.74 10^6/uL (3.93-5.22); RDW 13.5 % (11.7-14.6); RDW-SD 42.1 fL; WBC 9.48 10^3/uL (4.4-10.8)
[2023-06-10] VITALS (32 sets, daily range): BP systolic 107–194; BP diastolic 55–91; PULSE 59–129; RESP 16; TEMP 36.7–37.1; O2SAT 81–100; BMI 25.6
--- NOTE | 2023-06-10 02:36 | W.PM.OBNL1 ---
Date of service: 06/10/23 Time of Service: 02:36 Pelvic Exam Dilation: 6 Effacement (%): 90 station: 0 Fetus A Heart Rate Baseline: 135 Variability: Moderate (6-25 BPM) Decelerations: None Amniotic Membrane Status: Intact Assessment and Plan Assessment and plan (1) Uterine contractions: Status: Acute Assessment and plan: Encouraged to continue trying to relax. Wants to keep using NO. Objective Abnormal lab results 06/09/23 Range/Units 22:45 RBC 3.74 L (3.93-5.22) 10^6/uL Hgb 10.6 L (11.2-15.7) g/dL Hct 32.1 L (36.0-46.0) % MPV 11.1 H (8.0-11.0) fL Temp Pulse BP 98.2 F 78 112/58 L 06/10/23 02:23 06/10/23 02:23 06/10/23 02:23 Laboratory Results WBC 9.48 10^3/uL (4.4-10.8) 06/09/23 22:45 RBC 3.74 10^6/uL (3.93-5.22) L 06/09/23 22:45 Hgb 10.6 g/dL (11.2-15.7) L 06/09/23 22:45 Hct 32.1 % (36.0-46.0) L 06/09/23 22:45 MCV 86 fL (80-95) 06/09/23 22:45 MCH 28.3 pg (27.0-33.0) 06/09/23 22:45 MCHC 33.0 % (32.0-36.0) 06/09/23 22:45 RDW 13.5 % (11.7-14.6) 06/09/23 22:45 Plt Count 235 10^3/uL (130-400) 06/09/23 22:45 MPV 11.1 fL (8.0-11.0) H 06/09/23 22:45 Patient ABO/Rh O Positive 06/09/23 22:45 Antibody Screen NEGATIVE 06/09/23 22:45 Subjective Interval history since last seen: Pt coping well with nitrous oxide though at times is involuntarily pushing Results Hemoglobin/Hematocrit: Hgb 10.6 g/dL (11.2-15.7) L 06/09/23 22:45 Hct 32.1 % (36.0-46.0) L 06/09/23 22:45 Abnormal Lab Findings: Abnormal Labs 06/09/23 22:45 RBC 3.74 L Hgb 10.6 L Hct 32.1 L MPV 11.1 H
--- NOTE | 2023-06-10 06:04 | ANES.CON_ITS ---
General Date of Service Date of Service: 06/10/23 Reason for Consult Requesting Provider: Thao Gomez How Consult Conducted:: Chart Review (and seen in Room 300) Reason for Consult:: Request from Dr. Astrid Gomez, history of scoliosis Consult Recommendation after Review:: Low BMI, easily palpable spine, interspaces visualized on observation. Patient is an ASA II. per [facility]ES consult for labor MP 1, >3 TM. Patient is now 38 2/7 and has arrived for labor. Asked to see patient at bedside since I am already on unit. Patient assessed. Patient is appropriate for both neuraxial and general anesthesia at this facility. Patient reports does not believe she will need Epidural anesthesia for this delivery. All questions answered and did discuss my being available if they change their minds. Height: 4 ft 11 in Weight: 57.606 kg Body Mass Index (BMI): 25.6 Meds Allergies and Home Medications Allergies Allergy/AdvReac Type Severity Reaction Status Date / Time vinegar Allergy Uncoded 06/07/23 13:03 Home Medication Medication Instructions Recorded bupropion HCl 150 mg tablet,12 hr 150 mg PO BID 11/16/21 sustained-release (Wellbutrin SR) pediatric multivitamin 1 tab PO DAILY 12/13/22 (Flintstones Multivitamin chewable tablet) ondansetron 4 mg disintegrating 4 mg PO Q6H PRN nausea and 12/23/22 tablet vomiting #10 tabs hydroxyzine pamoate 25 mg capsule 25 mg PO QHS #30 caps 03/20/23 (Vistaril) Current Visit Medications: Current Medications Generic Name Dose Route Start Last Admin Trade Name Freq PRN Reason Stop Dose Admin Sodium Chloride 500 mls @ 0 mls/hr 06/09/23 22:34 Saline 500ml Bag IV PRN PRN As Directed IV Miscellaneous Supplies 1 each 06/09/23 22:45 Iv Access IV DIRECTED KARINE Sodium Chloride 0 ml 06/09/23 22:34 Normal Saline Flush 10 Ml Syr IVP PRN PRN PFSH Active Problems Active Problems: Problem Status Onset Code Constipation K59.00 Migraine G43.909 Z34.90 Anxiety 06/14/16 F41.9 Scoliosis associated with other condition M41.50 Back pain M54.9 Heart murmur R01.1 Bulging lumbar disc M51.36 Advanced maternal age, primigravida in second trimester, antepartum O09.512 Marijuana smoker F12.90 Low grade squamous intraepithelial lesion (LGSIL) at risk for high grade squamous intraepithelial lesion (HGSIL) on cytologic smear of cervix R87.612 Restless leg syndrome in O99.350, G25.81 Uterine contractions O47.9 Medical History Medical History (Updated 06/10/23 @ 02:35 by Thao Gomez MD) Anxiety Biliary colic Depressive disorder Facial paresthesia Interstitial cystitis contractions Surgical History Surgical History (Updated 06/09/23 @ 22:45 by Thoa Gomez MD) H/O hernia repair repaired in infancy History of Surgical Procedure a. Laparoscopic cholecystectomy. Tobacco Smoking/Tobacco Use Status: Never Alcohol Alcohol Intake: current Alcohol intake frequency: 0-2 drinks per day Substance Use Substance use: Daily Substance use type: marijuana Details: Smoking a few times a day, cut back since finding out she was Prental History History 2 Para 1 Hx # Term Pregnancies 1 Multiple births 0 Hx # Pregnancies 0 Ectopic pregnancies 0 AB induced 0 Hx Number of Living Children 1 AB spontaneous 0 Past Pregnancies Del. Date GA/Weeks # Preg Succ Route Wgt Sex Labor Lgth Anesth esia Location Prov [facility] 04/07/08 39 No Yes vaginal 2863.302 g Male [address] [place] [address] mary anne Red Delivery Date: 04/07/08 Last Updated by: Thao Gomez MD [facility] Andrey PIERSON. lost her mucus plug early and put on bedrest. Vital Signs & Lab Results Vital Signs Most Recent Vital Signs: Most Recent Vital Signs Temp Pulse BP 36.8 C 68 137/77 06/10/23 06:03 06/10/23 06:03 06/10/23 06:03 Point of Care Results Nursing Point of Care Results: No Data to Display Lab Results 06/09/23 22:45 Blood Type / Crossmatch: Patient ABO/Rh O Positive 06/09/23 Antibody Screen NEGATIVE 06/09/23 Complete Blood Count: White Blood Count 9.48 10^3/uL (4.4-10.8) 06/09/23 22:45 Red Blood Count 3.74 10^6/uL (3.93-5.22) L 06/09/23 22:45 Hemoglobin 10.6 g/dL (11.2-15.7) L 06/09/23 22:45 Hematocrit 32.1 % (36.0-46.0) L 06/09/23 22:45 Platelet Count 235 10^3/uL (130-400) 06/09/23 22:45 Complete Metabolic Panel: No Data to Display Liver Function Panel: No Data to Display Coagulation Panel: No Data to Display Cardiac Panel: No Data to Display Arterial Blood Gas: 2 No Data to Display Venous Blood Gas: No Data to Display Pancreas Panel: No Data to Display Thyroid Panel: No Data to Display Infectious Disease: No Data to Display Blood Cultures: No Data to Display Toxicology Panel: Urine Amphetamines Screen Negative (Negative) 05/18/23 13:00 Urine Benzodiazepines Screen Negative (Negative) 05/18/23 13:0 0 Urine Barbiturates Screen Negative (Negative) 05/18/23 13:00 Urine Cocaine Screen Negative (Negative) 05/18/23 13:00 Urine Methadone Screen Negative (Negative) 05/18/23 13:00 Urine Opiates Screen Negative (Negative) 05/18/23 13:00 Ur Tricyclic Antidepressants Screen Negative (Negative) 13:00 Ur Tetrahydrocannabinol (THC) Scrn Positive (Negative) A 05/18 13:00 Panel: No Data to Display
--- NOTE | 2023-06-10 06:38 | W.PM.OBNL1 ---
Date of service: 06/10/23 Time of Service: 06:39 Pelvic Exam Dilation: 6 Effacement (%): 90 station: 0 Fetus A Heart Rate Baseline: 130 Variability: Moderate (6-25 BPM) Categories: Category I Accelerations: 15 X 15 Decelerations: None Amniotic Membrane Status: Ruptured Rupture Method: Artifical Amniotic Fluid: Clear Date of Membrane Rupture: 06/10/23 Time of Membrane Rupture: 06:00 Assessment and Plan Assessment and plan (1) Uterine contractions: Status: Acute Assessment and plan: Await IV placement and epidural if appropriate at that time. Expect NVD. Objective Abnormal lab results 06/09/23 Range/Units 22:45 RBC 3.74 L (3.93-5.22) 10^6/uL Hgb 10.6 L (11.2-15.7) g/dL Hct 32.1 L (36.0-46.0) % MPV 11.1 H (8.0-11.0) fL Temp Pulse BP Pulse Ox 98.2 F 83 137/77 100 06/10/23 06:03 06/10/23 06:29 06/10/23 06:03 06/10/23 06:29 Laboratory Results WBC 9.48 10^3/uL (4.4-10.8) 06/09/23 22:45 RBC 3.74 10^6/uL (3.93-5.22) L 06/09/23 22:45 Hgb 10.6 g/dL (11.2-15.7) L 06/09/23 22:45 Hct 32.1 % (36.0-46.0) L 06/09/23 22:45 MCV 86 fL (80-95) 06/09/23 22:45 MCH 28.3 pg (27.0-33.0) 06/09/23 22:45 MCHC 33.0 % (32.0-36.0) 06/09/23 22:45 RDW 13.5 % (11.7-14.6) 06/09/23 22:45 Plt Count 235 10^3/uL (130-400) 06/09/23 22:45 MPV 11.1 fL (8.0-11.0) H 06/09/23 22:45 Patient ABO/Rh O Positive 06/09/23 22:45 Antibody Screen NEGATIVE 06/09/23 22:45 Vital Signs Reviewed: Yes Objective Narrative Objective Narrative: Pt had been 5cm and desired ROM. After ROM contractions became more intense and she desired an epidural. She was found to be 6cm. Subjective Interval history since last seen: Pt feeling very tired and uncomfortable from the ctxs. Results Hemoglobin/Hematocrit: Hgb 10.6 g/dL (11.2-15.7) L 06/09/23 22:45 Hct 32.1 % (36.0-46.0) L 06/09/23 22:45 Abnormal Lab Findings: Abnormal Labs 06/09/23 22:45 RBC 3.74 L Hgb 10.6 L Hct 32.1 L MPV 11.1 H
--- NOTE | 2023-06-10 07:17 | W.ANESPRE ---
General Info Date of Service Date Performed: 06/10/23 Height: 4 ft 11 in Weight: 57.606 kg Body Mass Index (BMI): 25.6 Meds Allergies and Home Medications Allergies Allergy/AdvReac Type Severity Reaction Status Date / Time vinegar Allergy Uncoded 06/07/23 13:03 Home Medication Medication Instructions Recorded bupropion HCl 150 mg tablet,12 hr 150 mg PO BID 11/16/21 sustained-release (Wellbutrin SR) pediatric multivitamin 1 tab PO DAILY 12/13/22 (Flintstones Multivitamin chewable tablet) ondansetron 4 mg disintegrating 4 mg PO Q6H PRN nausea and 12/23/22 tablet vomiting #10 tabs hydroxyzine pamoate 25 mg capsule 25 mg PO QHS #30 caps 03/20/23 (Vistaril) Current Visit Medications: Current Medications Generic Name Dose Route Start Last Admin Trade Name Freq PRN Reason Stop Dose Admin Fentanyl/Ropivacaine 200 ml 06/10/23 06:45 Fentanyl/Ropivacaine 2 Mcg/Ml And 0.1% 200 Ml Cadd Cassette EP DIRECTED KARINE Sodium Chloride 500 mls @ 0 mls/hr 06/09/23 22:34 Saline 500ml Bag IV PRN PRN As Directed IV Miscellaneous Supplies 1 each 06/09/23 22:45 Iv Access IV DIRECTED [facility] Sodium Chloride 0 ml 06/09/23 22:34 Normal Saline Flush 10 Ml Syr IVP PRN PRN PFSH Active Problems Active Problems: Problem Status Onset Code Constipation K59.00 Migraine G43.909 Z34.90 Anxiety 06/14/16 F41.9 Scoliosis associated with other condition M41.50 Back pain M54.9 Heart murmur R01.1 Bulging lumbar disc M51.36 Advanced maternal age, primigravida in second trimester, antepartum O09.512 Marijuana smoker F12.90 Low grade squamous intraepithelial lesion (LGSIL) at risk for high grade squamous intraepithelial lesion (HGSIL) on cytologic smear of cervix R87.612 Restless leg syndrome in O99.350, G25.81 Uterine contractions O47.9 Medical History Medical History (Updated 06/10/23 @ 02:35 by Thao Gomez MD) Anxiety Biliary colic Depressive disorder Facial paresthesia Interstitial cystitis contractions Surgical History Surgical History (Updated 06/09/23 @ 22:45 by Thao Gomez MD) H/O hernia repair repaired in infancy History of Surgical Procedure a. Laparoscopic cholecystectomy. Tobacco Smoking/Tobacco Use Status: Never Alcohol Alcohol Intake: current Alcohol intake frequency: 0-2 drinks per day Substance Use Substance use: Daily Substance use type: marijuana Details: Smoking a few times a day, cut back since finding out she was Prental History History 2 Para 1 Hx # Term Pregnancies 1 Multiple births 0 Hx # Pregnancies 0 Ectopic pregnancies 0 AB induced 0 Hx Number of Living Children 1 AB spontaneous 0 Past Pregnancies Del. Date GA/Weeks # Preg Succ Route Wgt Sex Labor Lgth Anesthesia Location [facility] 04/07/08 39 No Yes vaginal 2863.302 g Male [address] Moon Delivery Date: 04/07/08 Last Updated by: Thao Gomez MD [facility] Andrey PIERSON. lost her mucus plug early and put on bedrest. Vital Signs and Lab Results Vital Signs Most Recent Vital Signs in EMR: Most Recent Vital Signs Temp Pulse BP Pulse Ox 36.8 C 87 124/78 88 L 06/10/23 06:03 06/10/23 07:16 06/10/23 07:09 06/10/23 07:16 Lab Results 06/09/23 22:45 Blood Type / Crossmatch: Patient ABO/Rh O Positive 06/09/23 Antibody Screen NEGATIVE 06/09/23 Complete Blood Count: White Blood Count 9.48 10^3/uL (4.4-10.8) 06/09/23 22:45 Red Blood Count 3.74 10^6/uL (3.93-5.22) L 06/09/23 22:45 Hemoglobin 10.6 g/dL (11.2-15.7) L 06/09/23 22:45 Hematocrit 32.1 % (36.0-46.0) L 06/09/23 22:45 Platelet Count 235 10^3/uL (130-400) 06/09/23 22:45 Complete Metabolic Panel: No Data to Display Liver Function Panel: No Data to Display Coagulation Panel: No Data to Display Cardiac Panel: No Data to Display Arterial Blood Gas: No Data to Display Venous Blood Gas: No Data to Display Pancreas Panel: No Data to Display Thyroid Panel: No Data to Display Infectious Disease: No Data to Display Blood Cultures: No Data to Display Toxicology Panel: Urine Amphetamines Screen Negative (Negative) 05/18/23 13:00 Urine Benzodiazepines Screen Negative (Negative) 05/18/23 13:00 Urine Barbiturates Screen Negative (Negative) 05/18/23 13:00 Urine Cocaine Screen Negative (Negative) 05/18/23 13:00 Urine Methadone Screen Negative (Negative) 05/18/23 13:00 Urine Opiates Screen Negative (Negative) 05/18/23 13:00 Ur Tricyclic Antidepressants Screen Negative (Negative) 05/18/23 13:00 Ur Tetrahydrocannabinol (THC) Scrn Positive (Negative) A 05/18/23 13:00 Panel: No Data to Display Anesthesia Assessment and Plan Anesthesia History Personal History: No History of Anesthesia Complications Family History: No Family History of Anesthesia Complications Exercise Tolerance Exercise Tolerance: Metabolic Equivalents>4 Pertinent Negatives Pertinent Negatives: No Symptoms of GERD, No Major Pulmonary Symptoms or Complaints and No History of CVA/TIA Cardiac & Pulmonary Exam Cardiac Exam: Normal S1/S2 Heart Sounds Pulmonary Exam: Clear Bilateral Breath Sounds Implantable Cardiac Device Does patient have a Pacemaker or an ICD?: No Airway Exam Known Difficult Airway: No Mallampati Class: 1 Mouth Opening: Normal (> 3cm) Thyromental Distance: Greater than 3 cm Neck Range of Motion: Full ROM Neck Circumference: Normal Teeth Condition: Normal Dentition ASA Classification ASA Score: ASA 2 Emergency Case?: No NPO Status NPO Status: NPO Clears >2 hours, Solids >8 hours Status Status: Confirmed Anesthesia Plan Resuscitation Status: Full Code Anesthesia Technique: Epidural Anesthesia Airway Planned: Natural Airway Pain Management: Surgeon and patient request nerve block Monitors Used: Standard Monitors
--- NOTE | 2023-06-10 07:19 | W.ANESNEU ---
Epidural/Spinal Catheter Date Performed: 06/10/23 Procedure Start: 07:00 Procedure Stop: 07:12 Requesting Provider: Thao Gomez Procedure Location: Obstetrics Reason Performed: Labor Epidural Standard Monitors Applied: Blood Pressure and SpO2 Patient Position: Sitting Sedation Given (Indicate Dose Given): No Sedation given Patient Mental Status: Awake Sterility: Hand Hygiene, Surgical Cap, Surgical Mask, Sterile Gloves, Sterile Drape/Sheet and Chlorhexidine Procedure Location: L3-L4 Interspace Epidural Needle: Tuohy 17 Guage Needle Length: 3.5 Inch Needle Approach: Midline Epidural Procedure: Skin Prepped, Sterile Drape Placed, 1% Lidocaine to skin and subcutaneous tissue with 25G needle, Tuohy Needle placed, MIGUE to Saline Used, Epidural Catheter Placed, Negative Heme and Negative CSF Flow Catheter Placed?: Catheter Placed Test Dose (Indicate Dose Given): 5ml 1.5% Lidocaine with 1:200K Epinephrine Given and Negative Test Dose Loss of Resistance Depth (cm): 7 Catheter depth at skin (cm): 12 Dressing: Sorbaview Dressing Placed, Mastisol Used and Dressing reinforced with Tape Epidural Provider Bolus (Indicate Dose Given): Total bolus dose given in 3-5 ml divided doses and Total Ropivacaine 0.1% with Fentanyl 2mcg/ml Given from pump. (ml) Dose:: 8 Additives (Indicate Dose Given ): None Infusion Medication: Medication Infusion Began Medication Infusion: Ropivacaine 0.1% with Fentanyl 2mcg/ml Maintenance Infusion Rate (ml/hour): 8 PCEA Bolus Dose (ml): 4 Block Level: N/A (Found to be complete. ) Paresthesia: Left Paresthesia Duration: Transient Ultrasound: Not Used Number of Attempts (See previous attempts in note section): 1 Procedure Tolerated: No Complications and Patient tolerated well Procedure Outcome: Successful Performed By: Omar Ramos
[2023-06-10] MEDS: Oxytocin/Normal Saline 30 UNIT/500 ML BAG 95 UNITS IV (07:42)
--- NOTE | 2023-06-10 07:54 | OBVDS_ITS ---
Date of service: 06/10/23 Time of Service: 07:54 OB Labor/ Delivery Information Baby A Delivery Delivery Method: Spontaneaous Presentation: Vertex Vertex Position: Left Occipital Anterior Cord Description-Baby A: 3 Vessels Amniotic Fluid: Clear Estimated Blood Loss: 200 Delivery Outcome: Liveborn Providers Doctor: Thao Gomez Cottage Supervisor: Omar Ramos Nurse: Bre Haines Nurse: Daxa Davidson Labor/Delivery Information Number of Babies in Womb: 1 Steroids Given: None Reason Steroids Not Administered: N/A Group Beta Strep: Negative Antibiotics Administered: No Rubella Status: Immune Blood Type: O+ Varicella Immunity: Immune Shoulder Dystocia: No Note: The pt was found to be 9cm but pushing involuntarily. She pushed through the remaining cervix and brought the head to the perineum in MAKENNA position followed by the shoulders and the rest of the body. The baby was placed on mom's abdomen. After >1min the cord was clamped x2 and cut. Cord blood collected. The placenta delivered with gentle cord traction and fundal massage and appeared intact. No lacertations noted. Fundus was firm with good hemostasis. Mom and baby stable at time of note. Stages of Labor Onset of Labor Date: 06/09/23 Onset of Labor Time: 21:00 Complete Dilatation Date: 06/10/23 Complete Dilatation Time: 07:15 Labor - Stage 1 Duration: 10 hours and 15 minutes ROM Baby A: 06/10/23 ROM Baby A: 06:00 ROM Total Time- Baby A: [id number] Infant Delivery Date-Baby A: 06/10/23 Infant Delivery Time-Baby A: 07:42 Labor Stage 2 Duration: 27 minutes Placenta Delivery Date-Baby A: 06/10/23 Placenta Delivery Time-Baby A: 07:47 Labor-Stage 3 Duration: 5 minutes Total Length of Labor-Baby A: 10 hours and 42 minutes Placenta Status: Delivered Baby A Gender: Female Gestational Status: Early Term (37-38.6 wks) Gestational Age in Weeks/Days: 38 Weeks and 2 Days Score-1 Minute Interval(Baby A) Heart Rate-1 minute: 100 BPM or Greater Respiratory Effort- 1 minute: Spontaneous/Strong Cry Muscle Tone-1 minute: Active Movement Reflex Response-1 minute: Minimal Response Color-1 minute: Bluish Hands or Feet Total Score-1 minute: 8 Score-5 Minute Interval(Baby A) Heart Rate- 5 minute: 100 BPM or Greater Respiratory Effort-5 minute: Spontaneous/Strong Cry Muscle Tone-5 minute: Active Movement Reflex Response-5 minute: Prompt Response Color-5 minute: Bluish Hands or Feet Total Score- 5 minute: 9
[2023-06-10] MEDS: Acetaminophen 325 MG TAB 650 MG PO ×2 (09:50→19:30)
[2023-06-10] MEDS: Ibuprofen 600 MG TAB PO ×2 (09:51→21:37)
--- NOTE | 2023-06-10 10:55 | W.ANESPOSTOP ---
Postoperative Evaluation Date, Time and Location Date Performed: 06/10/23 Time Performed: 10:55 Patient Location: Obstetrics Vital Signs Most Recent Imported Vital Signs: Most Recent Vital Signs Temp Pulse BP Pulse Ox 36.8 C 70 119/57 L 99 06/10/23 08:07 06/10/23 10:00 06/10/23 10:00 06/10/23 07:40 Pain Score Most Recent Pain Score: Most Recent Pain Score Pain Level [Bilateral Abdomen] 0 06/10/23 08:04 Pain Level 5 06/10/23 09:51 Assessment Mental Status: Awake (Alert & Oriented to Patient Baseline) Airway and Respiratory Function: Patent airway with normal (patient baseline) respiratory exam Cardiovascular Function: Hemodynamically Stable Hydration Status: Adequately Hydrated Nausea & Vomiting: No Nausea or Vomiting Pain: Pt. Denies Any Pain Peripheral Nerve Block: Other (Epidural appropriately resolved, denied complaint, denied headache, denied backpain. Catheter removed with tip intact.)
[2023-06-10] MEDS: Normal Saline Flush 10 ML SYR IVP (18:51)
[2023-06-11 04:00] VITALS: BP 108/72; PULSE 64; TEMP 36.3
[2023-06-11] MEDS: Acetaminophen 325 MG TAB 650 MG PO ×3 (05:00→21:54)
[2023-06-11] MEDS: Ibuprofen 600 MG TAB PO ×3 (05:00→21:55)
[2023-06-11 09:01] VITALS: BP 125/69; PULSE 62; RESP 16; TEMP 36.6; O2SAT 99
--- NOTE | 2023-06-11 11:02 | W.PM.OBPNV1 ---
Date of service: 06/11/23 Time of Service: 11:03 Assessment and Plan Assessment and plan (1) Routine follow-up: Status: Acute Assessment and plan: Doing well PPD#1 s/p NVD. Routine care. Plans d/c tomorrow. Subjective Subjective Narrative: Pt is doing well. Minimal lochia. OOB. Tolerating reg diet. Breast-feeding going well. Exam Physical Exam Vital signs: Temp Pulse Resp BP Pulse Ox 97.9 F 62 16 125/69 99 06/11/23 09:01 06/11/23 09:01 06/11/23 09:01 06/11/23 09:01 06/11/23 09:01 Vital Signs Reviewed: Yes Constitutional Constitutional: no acute distress and cooperative Detailed HEENT Exam Head: Present normocephalic and atraumatic Respiratory Exam Respiratory Exam: Normal Abdominal Exam Abdomen: Tender (mildly) Fundal Exam Fundus: Below Umbilicus and Firm Extremities Exam Extremity Exam: negative Calf Tenderness or Edema Detailed Neurological Exam Neurological: Present alert, oriented X3 and CN II-XII intact Results Hemoglobin/Hematocrit: Hgb 10.6 g/dL (11.2-15.7) L 06/09/23 22:45 Hct 32.1 % (36.0-46.0) L 06/09/23 22:45 Abnormal Lab Findings: Abnormal Labs 06/09/23 22:45 RBC 3.74 L Hgb 10.6 L Hct 32.1 L MPV 11.1 H
[2023-06-11 21:02] VITALS: BP 105/69; RESP 16; TEMP 36.7; O2SAT 98
[2023-06-12 08:30] VITALS: BP 106/66; PULSE 66; RESP 16; TEMP 36.7; O2SAT 97
[2023-06-12] MEDS: Acetaminophen 325 MG TAB 650 MG PO (08:59)
[2023-06-12] MEDS: Ibuprofen 600 MG TAB PO (09:01)
[2023-06-12] MEDS: buPROPion-CR 150 MG TABCR PO (09:02)
--- NOTE | 2023-06-12 09:41 | DSE_ITS ---
Date of service: 06/12/23 Time of Service: 09:41 DS: Diagnosis Discharge Diagnosis (1) Routine follow-up: Status: Acute Asessment and Plan: Routine pp care. Return for visit in 2 & 6wks. Discharge Plan Disposition Patient Disposition: Home Condition: Good Discharge Details Reason For Visit: Contractions Admit Date/Time: 06/09/23 22:34 Admit Provider: Thao Gomez Attending Provider: Thao Gomez Primary Care Provider: Blanche Lema Hospital Course Hospital Course: Admitted in early labor, eventually underwent AROM with quick progression into active labor, received an epidural and began pushing shortly after. Had an uncomplicated vagianl delivery and course and was discharged on ppd#2. Home Meds and New Rx's Prescriptions: No Action Flintstones Multivitamin Tablet,Chewable 1 tab PO DAILY bupropion HCl [Wellbutrin SR] 150 mg tablet sustained-release 12 hr 150 mg PO BID hydroxyzine pamoate [Vistaril] 25 mg capsule 25 mg PO QHS Qty: 30 1RF ondansetron 4 mg tablet,disintegrating 4 mg PO Q6H PRN (Reason: nausea and vomiting) Qty: 10 0RF Discharge Instructions Activity:: Nothing in the vagina x1m Equipment/Supplies:: No Equipment Needed Diet:: As Tolerated Discharge Orders Discharge Orders: Discharge Order (Routine); Ordered 06/12/23 Ordered By: Thao Gomez OB:DS Summary Summary Vaginal Delivery Method: Spontaneaous Episiotomy Description: None Laceration Description: None Laceration Extension: N/A Contraception Discussed Contraception Discussed: Yes Contraceptive Plan: Tubal Ligation, Gender-Baby A: Female Status at Discharge Functional status at discharge: independent ambulation Overall status at discharge: patient is back to baseline Mental Status: mental status grossly normal Speech and Movement: speech and movement normal Mood: congruent mood Affect: normal affect Exam Physical Exam Vital signs: Temp Pulse Resp BP Pulse Ox 98.1 F 66 16 106/66 97 06/12/23 08:30 06/12/23 08:30 06/12/23 08:30 06/12/23 08:30 06/12/23 08:30 Vital Signs Reviewed: Yes Constitutional Constitutional: no acute distress and cooperative Detailed HEENT Exam Head: Present normocephalic and atraumatic Respiratory Exam Respiratory Exam: Normal Abdominal Exam Abdomen: Tender (mildly) Fundal Exam Fundus: Below Umbilicus and Firm Extremities Exam Extremity Exam: negative Calf Tenderness or Edema Detailed Neurological Exam Neurological: Present alert, oriented X3 and CN II-XII intact PFSH All Active Problems (Updated 06/11/23 @ 11:17 by Thao Gomez MD) Routine follow-up (Acute) Constipation (Acute) Migraine (Chronic) Anxiety (Chronic 06/14/16) Scoliosis associated with other condition (Acute) bulging disc Back pain (Acute) Heart murmur (Acute) Bulging lumbar disc (Acute) Marijuana smoker (Acute) Low grade squamous intraepithelial lesion (LGSIL) at risk for high grade squamous intraepithelial lesion (HGSIL) on cytologic smear of cervix (Acute) 2014 and 2019 pap MICHAEL, neg HR HPV 2022 + LGSIL cannot exclude HSIL + HR HPV colpo recommended Medical History (Updated 06/11/23 @ 11:17 by Thao Gomez MD) Anxiety Biliary colic Depressive disorder Facial paresthesia Interstitial cystitis Surgical History (Updated 06/09/23 @ 22:45 by Thao Gomez MD) H/O hernia repair repaired in infancy History of Surgical Procedure a. Laparoscopic cholecystectomy. Family History (Updated 12/13/22 @ 13:39 by Liss Cuello CNM) Father Diabetes Heart disease Atrial fibrillation Paternal Grandfather Hypertension Dementia alzheimers Renal failure Diabetes Paternal Grandmother Dementia COPD (chronic obstructive pulmonary disease) Mother Cancer Social History Smoking/Tobacco Use Status: Never Smoking risk assessment performed?: Yes Alcohol Intake: current Alcohol Intake frequency: 0-2 drinks per day Drug use: Daily Substance use type: marijuana Details: Smoking a few times a day, cut back since finding out she was Housing: house Do you feel safe at home: Yes Do you feel safe in your relationship?: Yes History History 2 Para 1 Hx # Term Pregnancies 1 Multiple births 0 Hx # Pregnancies 0 Ectopic pregnancies 0 AB induced 0 Hx Number of Living Children 1 AB spontaneous 0 Past Pregnancies Del. Date GA/Weeks # Preg Succ Route Wgt Sex Labor Lgth Anesth esia Location [facility] 04/07/08 39 No Yes vaginal 6 lb 5 oz Male [address] Huseyin Moon 06/10/23 38 No Yes vaginal 5 lb 9 oz Female 11hrs regional [facility] Delivery Date: 04/07/08 Last Updated by: Thao Gomez MD [facility] Andrey DANGELO. lost her mucus plug early and put on bedrest. Delivery Date: 06/10/23 Last Updated by: MD Sara Wright DS: Data Vitals/I&O Vitals and I&O: Vital Signs Temperature 98.1 F 06/12/23 08:30 Temperature 98.4 F 06/09/23 21:49 Temperature Source Oral 06/12/23 08:30 Pulse 66 06/12/23 08:30 Pulse 81 06/09/23 21:49 Pulse Rhythm Regular 06/12/23 09:04 Respiratory Rate 16 06/12/23 08:30 Respiratory Depth Normal 06/12/23 09:04 Blood Pressure 106/66 06/12/23 08:30 Blood Pressure 111/61 06/09/23 21:49 Blood Pressure Mean 79 06/12/23 08:30 Pulse Oximetry 97 06/12/23 08:30 Oxygen Delivery Method Room Air 06/09/23 22:41 Oxygen Flow Rate 0 06/09/23 22:41 Pain Level 3 06/12/23 09:01 Comment during a contraction 06/10/23 06:03 Intake & Output 06/11/23 06/11/23 06/12/23 11:59 23:59 11:59 Other: Urine Color Yellow Yellow Yellow Dark Angelica Dark Angelica
[2023-06-12] MEDS: Prenatal Multivitamin w/CA,FE TAB 1 TAB PO (10:39)
== END 2023-06-12 11:45 | disposition home or self-care (01) | DRG 806 ==
LOC: OBS 22:43 → BCD 06-11 08:38
PROVIDERS: Admitting Provider Obstetrics & Gynecology; PCP Family Medicine; Visit Provider Obstetrics & Gynecology
DX: O99.02 Anemia complicating childbirth (principal); O99.324 Drug use complicating childbirth; Z37.0 Single live birth; O99.354 Diseases of the nervous system complicating childbirth; Z3A.38 38 weeks gestation of pregnancy; O99.344 Other mental disorders complicating childbirth; F41.8 Other specified anxiety disorders; F12.90 Cannabis use, unspecified, uncomplicated; O99.62 Diseases of the digestive system complicating childbirth; G25.81 Restless legs syndrome; K59.00 Constipation, unspecified; G43.909 Migraine, unspecified, not intractable, without status migrainosus; M41.9 Scoliosis, unspecified; O28.2 Abnormal cytological finding on antenatal screening of mother; O75.89 Other specified complications of labor and delivery
CPT/HCPCS: 85027; 86850; 86900; 86901

== ENCOUNTER 2023-07-21 14:50 | Outpatient (REF) | payer MEDICAID, SELFPAY ==
--- NOTE | 2023-07-21 14:30 | PAPFT_PTH ---
PATIENT: Ana Bowser LOC: ATIF U#:[id number] AGE/SX: 37/F ROOM: RE07/21/[address]: Thao Gomez MD : 1985 BED: DIS: 07/21/2023 SPEC #: [id number] RECD: 07/21/23 17:10 STATUS: HALIMA RENydia #: [id number] MARTHA: 07/21/23 14:[address]: Thao Gomez DEPT: [facility] Cytology RECD BY: Khushi Baca ENTERED: 07/21/23 17:10 SP TYPE: PAPFT OTHR DR: Blanche Lema Tissues: 1 - CX/ENDOCX FOR PAP SMEARS Procedures: PAP THIN PREP/[facility] Screening HPV DNA PROBE Comments: [id number] (HPV 16 & 18/45)
== END 2023-07-21 14:51 | disposition home or self-care (01) ==
LOC: LBN 14:50
PROVIDERS: PCP Family Medicine; Visit Provider Obstetrics & Gynecology
DX: N94.9 Unspecified condition associated with female genital organs and menstrual cycle (principal); Z12.4 Encounter for screening for malignant neoplasm of cervix
CPT/HCPCS: 88142; 87480; 87510; 87624; 87660

== ENCOUNTER 2023-09-08 15:12 | Outpatient (REF) | payer MEDICAID, SELFPAY ==
--- NOTE | 2023-09-08 13:30 | ENDO_PTH ---
PATIENT: Ana Bowser LOC: ATIF U#:[id number] AGE/SX: 38/F ROOM: RE09/08/[address]: Thao Gomez MD : 1985 BED: DIS: 09/08/2023 SPEC #: [id number] RECD: 09/08/23 17:30 STATUS: HALIMA REQ #: [id number] MARTHA: 09/08/23 13:[address]: Thao Gomez DEPT: Surgical Specimen RECD BY: Khushi Baca ENTERED: 09/08/23 17:30 SP TYPE: Endo OTHR DR: Blanche Lema Tissues: 1 - ENDOCERVICAL BX/CURRETTE Procedures: GROSS AND MICRO LEVEL 4 Comments: [id number]
== END 2023-09-08 15:13 | disposition home or self-care (01) ==
LOC: LBN 15:12
PROVIDERS: PCP Family Medicine; Visit Provider Obstetrics & Gynecology
DX: R87.611 Atypical squamous cells cannot exclude high grade squamous intraepithelial lesion on cytologic smear of cervix (ASC-H) (principal)
CPT/HCPCS: 88305

== ENCOUNTER 2024-03-07 16:59 | Emergency (ER) | payer OTHER, SELFPAY ==
[2024-03-07 17:01] VITALS: BP 128/68; PULSE 79; RESP 16; TEMP 36.3; O2SAT 97
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
[2024-03-07 18:13] VITALS: BP 128/68; PULSE 79; RESP 16; TEMP 36.3; O2SAT 97
[2024-03-07] MEDS: predniSONE 20 MG TAB 40 MG PO (18:15)
[2024-03-07] MEDS: LORazepam 1 MG TAB PO (18:15)
[2024-03-07] MEDS: Ketorolac 10 MG TAB PO (18:15)
[2024-03-07] MEDS: Lidocaine 5% Patch 1 PATCH TP (18:15)
[2024-03-07] MEDS: Acetaminophen 500 MG TAB 1000 MG PO (18:15)
== END 2024-03-07 18:13 | disposition home or self-care (01) ==
PROVIDERS: Emergency Provider Physician Assistant; PCP Family Medicine
DX: S33.5XXA Sprain of ligaments of lumbar spine, initial encounter (principal); Y99.0 Civilian activity done for income or pay; X50.0XXA Overexertion from strenuous movement or load, initial encounter
CPT/HCPCS: 99283; J7512

== ENCOUNTER 2024-07-08 14:21 | Outpatient (REF) | payer OTHER, SELFPAY ==
--- NOTE | 2024-07-08 14:15 | PAPFT_PTH ---
PATIENT: Ana Bowser LOC: [facility] U#:[id number] AGE/SX: 38/F ROOM: RE07/08/[address]: Thao Gomez MD : 1985 BED: DIS: 07/08/2024 SPEC #: [id number] RECD: 07/09/24 18:12 STATUS: HALIMA REQ #: [id number] MARTHA: 07/08/24 14:[address]: Thao Gomez DEPT: [facility] Cytology RECD BY: Khushi Baca ENTERED: 07/09/24 18:12 SP TYPE: PAPFT OTHR DR: Blanche Lema Tissues: 1 - CX/ENDOCX FOR PAP SMEARS Procedures: PAP THIN PREP/UVM Screening HPV DNA PROBE Comments: [id number] (HPV 16 & 18/45)
== END 2024-07-08 14:22 | disposition home or self-care (01) ==
LOC: LBN 14:21
PROVIDERS: PCP Family Medicine; Visit Provider Obstetrics & Gynecology
DX: Z01.419 Encounter for gynecological examination (general) (routine) without abnormal findings (principal); R87.612 Low grade squamous intraepithelial lesion on cytologic smear of cervix (LGSIL); Z97.5 Presence of (intrauterine) contraceptive device
CPT/HCPCS: 88142; 87624

== ENCOUNTER 2024-08-27 10:11 | Outpatient (CLI) | payer OTHER, SELFPAY ==
[2024-08-27 10:17] LABS: Abs Immature Grans 0.01 10^3/uL (0.0-0.06); Absolute Basophil Count 0.02 10^3/uL (0.0-0.2); Absolute Eosinophil Count 0.06 10^3/uL (0.0-0.7); Absolute Lymphocyte Count 2.26 10^3/uL (1.2-3.4); Absolute Monocyte Count 0.28 10^3/uL (0.1-0.8); Absolute Neutrophil Count 2.53 10^3/uL (1.2-6.7); Basophils % 0.4 %; Eosinophils % 1.2 %; HCT 39.4 % (36.0-46.0); HGB 12.7 g/dL (11.2-15.7); Immature Grans % 0.2 %; Lymphocytes % 43.8 %; MCH 28.3 pg (27.0-33.0); MCHC 32.2 % (32.0-36.0); MCV 88 fL (80-95); MPV 10.7 fL (8.0-11.0); Monocytes % 5.4 %; Platelet Count 215 10^3/uL (130-400); RBC 4.49 10^6/uL (3.93-5.22); RDW 12.3 % (11.7-14.6); RDW-SD 39.5 fL; WBC 5.16 10^3/uL (4.4-10.8)
[2024-08-27 10:41] LABS: TSH (W/Ref FT4) 2.91 uIU/mL (0.36-3.74)
[2024-08-27 10:42] LABS: C-Reactive Protein < 0.50 mg/dL (<or=0.5)
[2024-08-27 21:58] LABS: FSH 12.1 mIU/mL (See Note); LH 6.3 mIU/mL (See Note)
== END 2024-08-27 10:12 | disposition home or self-care (01) ==
LOC: LBO 10:11
PROVIDERS: PCP Family Medicine; Visit Provider Family Medicine
DX: R53.83 Other fatigue (principal); R61 Generalized hyperhidrosis; M25.579 Pain in unspecified ankle and joints of unspecified foot
CPT/HCPCS: 36415; 83001; 83002; 84443; 85025; 86140

== ENCOUNTER 2024-10-24 22:08 | Emergency (ER) | payer SELFPAY ==
[2024-10-24] VITALS (7 sets, daily range): BP systolic 121–138; BP diastolic 62–75; PULSE 67–89; RESP 14–23; TEMP 36.8; O2SAT 97–99
[2024-10-24] MEDS: Ondansetron 4 MG/2 ML VIAL (23:02)
[2024-10-24 23:22] LABS: Abs Immature Grans 0.03 10^3/uL (0.0-0.06); Absolute Basophil Count 0.04 10^3/uL (0.0-0.2); Absolute Eosinophil Count 0.08 10^3/uL (0.0-0.7); Absolute Lymphocyte Count 1.46 10^3/uL (1.2-3.4); Absolute Monocyte Count 0.56 10^3/uL (0.1-0.8); Absolute Neutrophil Count 11.25 10^3/uL (1.2-6.7); Basophils % 0.3 %; Eosinophils % 0.6 %; HCT 39.3 % (36.0-46.0); HGB 12.9 g/dL (11.2-15.7); Immature Grans % 0.2 %; Lymphocytes % 10.9 %; MCH 28.1 pg (27.0-33.0); MCHC 32.8 % (32.0-36.0); MCV 86 fL (80-95); MPV 11.3 fL (8.0-11.0); Monocytes % 4.2 %; Neutrophils % 83.8 %; Platelet Count 250 10^3/uL (130-400); RBC 4.59 10^6/uL (3.93-5.22); RDW 12.6 % (11.7-14.6); RDW-SD 38.8 fL; WBC 13.42 10^3/uL (4.4-10.8)
[2024-10-24] MEDS: ACETAMINOPHEN 1,000 MG/100 ML BAG 400 MG IVPB (23:25)
[2024-10-24] MEDS: Lactated Ringers 1,000 ML 1000 ML IV (23:25)
[2024-10-24 23:42] LABS: Anion Gap 8.4 mmol/L (3-11); BUN 11 mg/dL (7-18); CO2 28.6 mmol/L (21.0-32.0); CREATININE 0.8 mg/dL (0.55-1.02); Chloride 107 mmol/L (98-107); Estimated GFR 97.26 (mL/min/1.73m2); Glucose 117 mg/dL (74-106); Potassium 3.5 mmol/L (3.5-5.1); Sodium 144 mmol/L (136-145)
[2024-10-24] MEDS: METOCLOPRAMIDE 10 MG in Normal Saline 50 ML 200 MG IVPB (23:52)
[2024-10-25] VITALS (7 sets, daily range): BP systolic 103–125; BP diastolic 45–75; PULSE 63–89; RESP 13–20; TEMP 36.8; O2SAT 96–99
--- NOTE | 2024-10-25 | DI.CT_ITS ---
Exam(s) CT HEAD WO EXAM: CT HEAD WO CLINICAL HISTORY: head injury, nausea with vomiting. TECHNIQUE: Imaging Protocol: Axial computed tomography images with coronal and sagittal reformatted images were created and reviewed COMPARISON: CT CT BRAIN NECK CTA from 07/05/2021 FINDINGS: Ventricles and Extra axial spaces: Normal in size and morphology for the patient's age. Hemorrhage: None. Cerebral parenchyma: Normal. Midline shift: None. Brainstem/Cerebellum: Normal. Calvarium: Normal. Visualized Paranasal sinuses/Mastoids: Clear. Soft Tissues: Unremarkable. IMPRESSION: No acute intracranial process. RADIATION DOSE DELIVERED: 854.34mGy.cm Total DLP DATA REPOSITORY: All CT scans at this facility are submitted to the National Radiology Data Registry (NRDR) Dose Index Registry (DIR) with the [employer] (ACR). RADIATION OPTIMIZATION: All CT scans at this facility use at least one of these dose optimization te chniques: automated exposure control; mA and/or kV adjustment per patient size (includes targeted exa ms where dose is matched to clinical indication); or iterative reconstruction.
[2024-10-25 00:02] LABS: HCG Qual (Serum) Negative
--- NOTE | 2024-10-25 00:40 | ED.GENADUL_ITS ---
Discharge Plan Disposition Patient Disposition: Home Condition: Improving Discharge Details Chief Complaint: HeadInjury Clinical Impression: Head injury due to trauma, Concussion, Nausea & vomiting Primary Care Provider: Blanche Lema ED Provider: Oseas Arreaga Home Meds and New Rx's Prescriptions: No Action Flintstones Multivitamin Tablet,Chewable 1 tab PO DAILY bupropion HCl [Wellbutrin SR] 150 mg tablet sustained-release 12 hr 150 mg PO DAILY Liletta 20.4 mcg/24 hrs (8 yrs) 52 mg intrauterine device 1 device intrauterine ONCE Rx Instructions: as a single dose rizatriptan 5 mg tablet,disintegrating See Rx Instructions PO .COMPLEX Rx Instructions: take 1 tablet at onset of headache; if no relief, may repeat 1 tablet after at least 2 hrs PO promethazine 25 mg tablet 25 mg PO Q6H PRN Patient Comments: TAKE ONE TABLET BY MOUTH EVERY 6 HOURS NEEDED FOR NAUSEA AND VOMITING Discharge Instructions Instructions: Concussion, Adult ED Additional Instructions: You can take 1 Zofran ODT tablet every 8 hours as needed for symptoms of nausea and vomiting. You can take two or three 325 mg acetaminophen tablets every 4-6 hours as needed for symptoms of headache. You can take two or three 200 mg ibuprofen tablets every 6 hours as needed for symptoms headache. Get rest and expect to have some on and off nausea, headaches, mood changes, and dizziness over the course of the next few days. Symptoms should slowly improve as time goes on. He can follow-up with regular primary care doctor for reevaluation and further management, especially if symptoms are lasting longer than 5 days. You can always return to the ER for any new concerns or sudden changes in your health which you feel require emergency medical attention. Discharge Data Discharge Physician: Oseas Arreaga [facility] General Date/Time Provider Initiated Documentation: 10/24/24 22:13 . [facility] Narrative: The patient is a 39-year-old female, with a past medical history significant for anxiety, depression, past history of interstitial cystitis, migraine headaches, who presents the emergency room complaining of a sensation of dizziness with nausea and vomiting after striking her head hard on a overhead cabinet tonight while at work. The patient developed a modest headache after the original event but approximately 30 to 40 minutes later she began having intermittent vomiting whenever she tried to stand up and walk around. The patient tells me that she does not have rotational dizziness but that her stomach seems to drop and she becomes acutely nauseated with any ambulation trials. She reports an ongoing headache of 3-4 out of 10. The patient denies any neck pain. Related Data Home Medications ?Medication ?Instructions ?Recorded ?Confirmed bupropion HCl 150 mg tablet,12 hr 150 mg PO DAILY 11/16/21 10/24/24 sustained-release (Wellbutrin SR) pediatric multivitamin 1 tab PO DAILY 12/13/22 10/24/24 (Flintstones Multivitamin chewable tablet) levonorgestrel 20.4 mcg/24 hr (up 1 device intrauterine ONCE 07/27/23 10/24/24 to 8 yrs) 52 mg intrauterine device (Liletta) rizatriptan 5 mg disintegrating See Rx Instructions PO .COMPLEX 07/08/24 10/24/24 tablet promethazine 25 mg tablet 25 mg PO Q6H PRN 10/24/24 10/24/24 Allergies Allergy/AdvReac Type Severity Reaction Status Date / Time vinegar Allergy Other (See Uncoded 10/24/24 22:28 Comment) General Stated Complaint: HeadInjury LAKHWINDER: 3 Exam Const General: cooperative, no acute distress and well groomed Orientation: oriented x3 [facility] Head: normocephalic and contusion vertex 4 cm Ears: TM's normal bilaterally General nose exam: external nose normal and no epistaxis Face and sinus: normal facial exam and sinuses nontender Mouth: oral mucosae normal Teeth and gingiva: dentition normal Eyes Conjunctivae: conjunctivae normal Sclera: sclerae normal Pupils: PERRL EOM: EOM intact bilaterally and nystagmus (Horizontal with fast beating component to the right ear) Neck Neck: full ROM and supple Resp Effort & Inspection: normal respiratory effort Auscultation: clear to auscultation bilaterally Cardio Rate: regular rate Rhythm: regular rhythm GI Inspection: normal to inspection Palpation: soft Auscultation: normal bowel sounds Skin General skin exam: no rashes or lesions noted Lesions: no lesions Neuro General: patient oriented x3, moves all extremities, normal light touch, pain and propioception and no focal motor deficits Cranial Nerves: nystagmus (Horizontal with fast beating component to the right ear) Cognition: normal cognition Speech: speech normal Gait: normal gait Extrem General: normal to inspection, full ROM, no cyanosis and no edema Course Vital Signs Vital signs: Vital Signs Temperature 36.8 C 10/24/24 22:26 Pulse 76 10/24/24 22:26 Respiratory Rate 18 10/24/24 22:26 Blood Pressure 125/75 10/24/24 22:26 Pulse Oximetry 99 10/24/24 22:26 Temperature 36.8 C 10/24/24 22:26 Temperature Source Oral 10/24/24 22:26 Pulse 63 10/25/24 00:30 Pulse 87 10/25/24 00:02 Respiratory Rate 13 10/25/24 00:02 Respiratory Effort Normal, Non-Labored 10/24/24 23:03 Respiratory Depth Normal 10/24/24 23:03 Respiratory Pattern Normal 10/24/24 23:03 Blood Pressure 125/75 10/25/24 00:01 Blood Pressure Mean 91 10/25/24 00:01 Blood Pressure Position Sitting 10/24/24 22:26 Pulse Oximetry 98 10/25/24 00:30 Oxygen Delivery Method Room Air 10/24/24 22:26 Oxygen Flow Rate 0 10/24/24 22:26 Pain Level 3 10/24/24 22:26 Lab/Test Results Lab/Test Results: Laboratory Tests Range/Units 10/24/24 23:02 WBC (4.4-10.8) 10^3/uL 13.42 H RBC (3.93-5.22) 10^6/uL 4.59 Hgb (11.2-15.7) g/dL 12.9 Hct (36.0-46.0) % 39.3 MCV (80-95) fL 86 MCH (27.0-33.0) pg 28.1 MCHC (32.0-36.0) % 32.8 RDW (11.7-14.6) % 12.6 Plt Count (130-400) 10^3/uL 250 MPV (8.0-11.0) fL 11.3 H Immature Gran % % 0.2 Neutrophils % % 83.8 Lymphocytes % % 10.9 Monocytes % % 4.2 Eosinophils % % 0.6 Basophils % % 0.3 Nucleated RBC % (0.0-0.3) % 0.0 Absolute Neutrophils (1.2-6.7) 10^3/uL 11.25 H Absolute Lymphocytes (1.2-3.4) 10^3/uL 1.46 Absolute Monocytes (0.1-0.8) 10^3/uL 0.56 Absolute Eosinophils (0.0-0.7) 10^3/uL 0.08 Absolute Basophils (0.0-0.2) 10^3/uL 0.04 Sodium (136-145) mmol/L 144 Potassium (3.5-5.1) mmol/L 3.5 Chloride (98-107) mmol/L 107 Carbon Dioxide (21.0-32.0) mmol/L 28.6 Anion Gap (3-11) mmol/L 8.4 BUN (7-18) mg/dL 11 Creatinine (0.55-1.02) mg/dL 0.8 Est GFR (CKD-EPI 2020) (mL/min/1.73m2) 97.26 Glucose (74-106) mg/dL 117 H Calcium (8.5-10.1) mg/dL 9.0 Serum HCG, Qual Negative Medical Decision Making The patient was seen and examined. Her only neurologic deficit was horizontal nystagmus beating to the right ear. There was no vertical nystagmus to suggest a central cause for dizziness. The patient herself will deny being dizzy at this time. However, every time she stands she does have nausea and vomiting. This improved here in the emergency room with IV Tylenol and IV Reglan. The patient will be sent for a CT scan of the head to exclude any obvious intracranial pathology. Assuming that this test is negative and the patient symptoms have improved, she is amenable to discharge home with outpatient follow-up as needed for symptom management of postconcussive nausea and vomiting. The patient continues to have some intermittent nausea and vomiting which is controlled with IV Zofran here in the emergency room. The patient would like to go home and try to get some rest. This may represent some form of a gastroenteritis as the patient did say that she was feeling off before she str uck her head tonight. This may also continue to represent a postconcussive nausea and vomiting. The patient's CT scan was negative for any acute pathology. I will dispense a Zofran ODT bottle with 3 tablets for the patient to use at home. I will encourage her to use oral ibuprofen and Tylenol in alternation to help out with any headaches. Primary care follow-up recommended if symptoms are ongoing despite this care plan. Quality:SDME Health Related Social Needs: No Data to Display PFSH All Active Problems (Updated 10/25/24 @ 03:36 by Oseas Arreaga MD) Nausea & vomiting (Acute) Concussion (Acute) Head injury due to trauma (Acute) Pre-procedural laboratory examination (Acute) Marijuana smoker (Acute) Bulging lumbar disc (Acute) Heart murmur (Acute) Back pain (Acute) Scoliosis associated with other condition (Acute) bulging disc Anxiety (Chronic 06/14/16) Migraine (Chronic) Constipation (Acute) Medical History (Updated 10/25/24 @ 03:36 by Oseas Arreaga MD) History of abnormal cervical Pap smear Jun 2024: ASCUS/HPV 16+ --> benign appearing colp. 2022: ASC-H/HPV+ -->colp: benign appearing, ECC: 2022: LGSIL cannot exclude HSIL + HR HPV, declined colp during 2014 and 2019 pap MICHAEL, neg HR HPV Presence of IUD Liletta inserted Jul 2023 Facial paresthesia Interstitial cystitis Depressive disorder Anxiety Biliary colic Surgical History (Updated 06/09/23 @ 22:45 by Thao Gomez MD) H/O hernia repair repaired in infancy History of Surgical Procedure a. Laparoscopic cholecystectomy. Family History (Updated 12/13/22 @ 13:39 by Liss Cuello CNM) Father Diabetes Heart disease Atrial fibrillation Paternal Grandfather Hypertension Dementia alzheimers Renal failure Diabetes Paternal Grandmother Dementia COPD (chronic obstructive pulmonary disease) Mother Cancer Social History Smoking/Tobacco Use Status: Never Smoking risk assessment performed?: Yes Alcohol Intake: current Alcohol Intake frequency: 0-2 drinks per day Drug use: Daily Substance use type: marijuana Housing: house Do you feel safe at home: Yes Do you feel safe in your relationship?: Yes History History 2 Para 1 Hx # Term Pregnancies 1 Multiple births 0 Hx # Pregnancies 0 Ectopic pregnancies 0 AB induced 0 Hx Number of Living Children 1 AB spontaneous 0 Past Pregnancies Del. Date GA/Weeks # Preg Succ Route Wgt Sex Labor Lgth Anesth esia Location [facility] 04/07/08 39 No Yes vaginal 2863.302 g Male 12 [facility] Janny Moon 06/10/23 38 No Yes vaginal 2523.108 g Female 11hrs [facility] Jason Delivery Date: 04/07/08 Last Updated by: [facility] lost her mucus plug early and put on bedrest. Delivery Date: 06/10/23 Last Updated by: Thao Gomez MD [facility]
--- NOTE | 2024-10-25 01:20 | DI.VRAD_ITS ---
PROCEDURE INFORMATION: Exam: CT Head Without Contrast Exam date and time: 10/25/2024 12:43 AM Age: 39 years old Clinical indication: Injury or trauma; Other: Hit head; Work related; Blunt trauma (contusions or hematomas); Consciousness not specified; Injury date: 10/24/24; Injury details: Head injury, nausea with vomiting TECHNIQUE: Imaging protocol: Computed tomography of the head without contrast. Radiation optimization: All CT scans at this facility use at least one of these dose optimization techniques: automated exposure control; mA and/or kV adjustment per patient size (includes targeted exams where dose is matched to clinical indication); or iterative reconstruction. COMPARISON: CT BRAIN NECK CTA 07/05/2021 4:38 PM FINDINGS: Limitations: Mild motion artifact. Brain: No intracranial hemorrhage appreciated. No significant focal mass effect or significant midline shift. Cerebral ventricles: No disproportionate ventriculomegaly. Paranasal sinuses: No air-fluid levels seen. Mastoid air cells: No mastoid effusion. Bones: No acute cranial vault fracture seen. Soft tissues: No acute findings. IMPRESSION: No intracranial sequelae of trauma appreciated. Dictated and Authenticated by: Stephanie Mason MD. Orderin Gibson Farooq MD
[2024-10-25] MEDS: Ondansetron 4 MG/2 ML VIAL IVP (02:41)
[2024-10-25] MEDS: Ondansetron O.D.T. 4 MG TABEF, 3 TABS/BTL PO (03:35)
== END 2024-10-25 03:42 | disposition home or self-care (01) ==
PROVIDERS: Emergency Provider Emergency Medicine Emergency Medical Services; PCP Family Medicine
DX: S06.0X0A Concussion without loss of consciousness, initial encounter (principal); W22.09XA Striking against other stationary object, initial encounter; Y93.89 Activity, other specified; Y92.238 Other place in hospital as the place of occurrence of the external cause; Y99.0 Civilian activity done for income or pay
CPT/HCPCS: 36415; 80048; 82962; 96365; 96367; 96375; 99284; 70450; 84703; 85025; J0131; J2405; J2765

== ENCOUNTER 2025-06-11 21:00 | Outpatient (REF) | payer OTHER, SELFPAY ==
--- NOTE | 2025-06-11 16:00 | PAPFT_PTH ---
PAT[facility]: [facility] Bowser [id number] AGE/SX: 39/F ROOM: RE06/11/[address]: Blanche Lema : 1985 BED: DIS: 06/11/2025 SPEC #: [id number] RECD: 06/12/25 12:32 STATUS: HALIMA RENydia #: [id number] MARTHA: 06/11/25 16:[address]: Blanche Lema DEPT: [facility] Cytology RECD BY: Khushi Baca Tissues: 1 - CX/ENDOCX FOR PAP SMEARS Procedures: PAP THIN PREP/[facility] Screening HPV DNA PROBE Comments: [id number] (HPV 16 & 18/45)
[2025-06-11 22:19] LABS: TSH (W/Ref FT4) 0.80 uIU/mL (0.36-3.74)
[2025-06-12 18:18] LABS: FSH 11.8 mIU/mL (See Note); LH 3.3 mIU/mL (See Note)
== END 2025-06-11 21:01 | disposition home or self-care (01) ==
LOC: NCHCN 21:00
PROVIDERS: PCP Family Medicine; Visit Provider Family Medicine
DX: Z12.4 Encounter for screening for malignant neoplasm of cervix (principal)
CPT/HCPCS: 88142; 83001; 83002; 84443; 87624